=== PATIENT | male | born 1975 | race Caucasian/White ===

== ENCOUNTER 2020-01-09 07:12 | Emergency (ER) | payer OTHER, MEDICAID, SELFPAY ==
[2020-01-09 07:17] VITALS: BP 187/100; PULSE 75; RESP 16; TEMP 36.6; O2SAT 98; BMI 30.4
--- NOTE | 2020-01-09 07:17 | ED.DENTAL ---
HPI - Dental/Oral General Chief complaint: Dental/Oral Stated complaint: SHATTERED TOOTH THATS INFECTED Time Seen by Provider: 01/09/20 07:16 Source: patient Mode of arrival: Ambulatory Limitations: no limitations History of Present Illness HPI Narrative: The patient presents with 4 days of lower gum pain and swelling, and swelling to the left lower lip. He has dental caries, he has prior dental extraction due to abscesses. He has been unable to see a dentist due to insurance and the COVID-19 pandemic. In recent weeks he broke tooth #23. That site now is the source of inflammation and pain. He has no associated fever. He has no difficulty with swallowing. He has local edema to the lower lip but no other facial edema. He has no chest pain or dyspnea. He has no fever. Related Data Previous Rx's Medication Instructions Recorded undecylenic acid 25 % topical 1 applictn TOP BID #40 ml 11/08/18 solution clindamycin HCl [Cleocin HCl] 300 mg PO Q8H 10 Days #30 cap 01/09/20 ibuprofen 800 mg PO Q8H PRN #30 tab 01/09/20 tramadol 50 mg PO Q6-8H PRN #14 tab 01/09/20 Allergies Allergy/AdvReac Type Severity Reaction Status Date / Time penicillin V [PENICILLIN V] Allergy Unknown Unverified 09/29/17 11:48 Review of Systems Constitutional Constitutional: Denies chills, Denies fever(s) and Reports headache(s) ENT Ears, Nose, Mouth, and Throat: Reports as per HPI, Reports facial pain, Reports headache(s), Reports mouth pain, Denies neck pain and Denies sore throat Cardiovascular Cardiovascular: Denies chest pain and Denies dyspnea Respiratory Respiratory: Denies dyspnea Musculoskeletal Musculoskeletal: Denies neck pain Neurologic Neurologic: Reports headache(s) Patient History Medical History (Updated 01/09/20 @ 07:34 by Neno Erickson MD) Ankle pain (Chronic) Dental caries (Acute) Foot pain (Chronic) Kidney stones (Resolved) Skin problem (Inactive) Family History Father Cancer Grandfather Cancer Social History Smoking Status: Current every day smoker Smoking Status: Current every day smoker Exam Initial Vital Signs Initial Vital Signs: Vital Signs Temperature 98 F 01/09/20 07:17 Pulse Rate 75 01/09/20 07:17 Respiratory Rate 16 01/09/20 07:17 Blood Pressure 187/100 H 01/09/20 07:17 Pulse Oximetry 98 01/09/20 07:17 Const General: cooperative and well developed Nutritional Appearance: well nourished [facility] Head: other (Edema to the left lower lip and left chin.) Mouth: lip normal (Left lower lip edema.) and tongue normal Teeth and gingiva: caries (Tooth #23 has fractured at the gum line due to a gino. ) and other (Dental abscess associated with tooth #23.) Throat: posterior oropharynx normal Neck Neck: No lymphadenopathy and No tender Resp Auscultation: clear to auscultation bilaterally Cardio Rate: regular rate Rhythm: regular rhythm Heart Sounds: S1 normal and S2 normal Course Course Course Narrative: The patient was given an initial dose of clindamycin before departure from the ER. Ibuprofen 800 mg was given for pain. He is discharged on clindamycin, ibuprofen and tramadol. He is advised to make a dental follow-up. Orders Ordered: Clindamycin HCl (Cleocin) 300 mg PO NOW ONE Stop: 01/09/20 07:25 Ibuprofen (Advil) 800 mg PO NOW ONE Stop: 01/09/20 07:25 Vital Signs Vital signs: Vital Signs - 8 hr 01/09/20 07:17 Temperature 98 F Pulse Rate 75 Respiratory Rate 16 Blood Pressure 187/100 H Pulse Oximetry 98 Discharge Plan Departure Patient Disposition: Home Clinical Impression: Dental abscess Instructions: Tooth Abscess Activity Restrictions/Additional Instructions: Cleocin 300 mg 3 times daily as prescribed. Motrin every 6 hours as needed for pain. Tramadol every 6 hours as needed for added pain control. Apply ice packs to the swelling on your lower jaw frequently until the infection is improving. Make an appointment with a local dentist. Return to the ER if you develop significant facial swelling or fever. Prescriptions: New clindamycin HCl [Cleocin HCl] 300 mg capsule 300 mg PO Q8H 10 Days Qty: 30 RF: 0 ibuprofen 800 mg tablet 800 mg PO Q8H PRN (Reason: pain) Qty: 30 RF: 0 tramadol 50 mg tablet 50 mg PO Q6-8H PRN (Reason: pain) Qty: 14 RF: 0 No Action Antifungal 25 % solution 1 applictn TOP BID Qty: 40 RF: 2
[2020-01-09] MEDS: IBUPROFEN 400 MG TABLET 800 MG PO (07:44)
[2020-01-09] MEDS: CLINDAMYCIN 150 MG CAPSULE 300 MG PO (07:44)
== END 2020-01-09 07:52 | disposition home or self-care (01) ==
PROVIDERS: Emergency Provider Emergency Medicine
DX: K04.7 Periapical abscess without sinus (principal)
CPT/HCPCS: 99283

== ENCOUNTER 2021-11-29 01:31 | Emergency (ER) | payer OTHER, MEDICAID, SELFPAY ==
[2021-11-29 01:42] VITALS: BP 136/82; PULSE 90; RESP 16; TEMP 36.7; O2SAT 100; BMI 28.5
--- NOTE | 2021-11-29 01:51 | ED.SKABFB ---
HPI - Skin/Abscess/Foreign Bdy General Chief complaint: Skin/Abscess/Foreign Body Stated complaint: right arm injury/infection x2 days Time Seen by Provider: 11/29/21 01:42 Source: patient and other Mode of arrival: Wheelchair Limitations: no limitations History of Present Illness HPI narrative: 46-year-old male who is here for an infection of his right arm. He states that he has had a scab over this area for some time however he recently knocked the scab off. He also states that in scratching his arm he thinks that he infected it. He does have elbow pain but this is not new for him. No wrist pain. No fevers. He states that it has been draining since this morning. There is swelling in the area. Have been doing topical creams and also peroxide. Related Data Previous Rx's Medication Instructions Recorded undecylenic acid 25 % topical 1 applictn topical BID Bullous 11/08/18 solution (Antifungal) tinea pedis #40 mL ibuprofen 800 mg tablet 800 mg PO Q8H PRN pain #30 tabs 01/09/20 tramadol 50 mg tablet 50 mg PO Q6-8H PRN pain #14 tabs 01/09/20 doxycycline hyclate 100 mg tablet 100 mg PO BID 7 days #14 tabs 11/29/21 Allergies Allergy/AdvReac Type Severity Reaction Status Date / Time penicillin V [PENICILLIN V] Allergy Unknown Verified 11/29/21 01:53 Review of Systems Constitutional Constitutional: Denies fever(s) Musculoskeletal Musculoskeletal: Reports system reviewed and no additional complaints, except as documented Integumentary/Breasts Skin/Breast: Reports system reviewed and no additional complaints, except as documented Hematologic/Lymphatic On Anticoagulants: No Allergic/Immunologic Allergic/Immunologic: Reports system reviewed and no additional complaints, except as documented Patient History Medical History Ankle pain Foot pain Kidney stones Skin problem Family History Father Cancer Grandfather Cancer Social History Smoking Status: Current every day smoker Smoking Status: Current every day smoker alcohol intake frequency: a few times a month Substance Use Type: does not use Exam Initial Vital Signs Initial Vital Signs: Vital Signs Temperature 98.1 F 06/11/22 01:42 Pulse Rate 90 11/29/21 01:42 Respiratory Rate 16 11/29/21 01:42 Blood Pressure 136/82 11/29/21 01:42 Pulse Oximetry 100 11/29/21 01:42 Oxygen Delivery Method 11/29/21 01:42 Const General: cooperative and comfortable HENRI Head: normal to inspection and normocephalic Cardio Pulses: radial pulses present on the right Skin Other: Patient has redness and swelling to his right forearm. It is tender to the touch. This draining a small amount of purulent and serosanguineous material. Neuro Sensory Exam: no sensory deficits noted Extrem Other: No pain with movement of the right wrist. Has full range of motion of the right elbow. Tenderness to palpation over the redness and induration of the right forearm. Course Orders Ordered: Discontinued Medications Doxycycline Hyclate 100 mg/ (Sodium Chloride) 100 mls @ 100 mls/hr IV NOW ONE Stop: 11/29/21 01:52 Vital Signs Vital signs: Vital Signs - 8 hr 11/29/21 01:42 Temperature 98.1 F Pulse Rate 90 Respiratory Rate 16 Blood Pressure 136/82 Pulse Oximetry 100 Oxygen Delivery Method Room Air MDM - Skin/Abscess/Foreign Bdy MDM Narrative Medical decision making narrative: Bedside ultrasound does show cobblestoning but no definite abscess of the area of the right forearm. He has full range of motion of his right wrist and his right elbow. His vital signs are unremarkable. No fevers. Not tachycardic. Patient of stay is a cellulitis in this area but does not appear to have any abscess. Potentially the drainage is being on from this morning has drained this abscess. Patient does require antibiotics. Low suspicion for septic joint. Low suspicion for compartment syndrome. He is neurovascularly intact. Given 1st dose of antibiotics here in the ER and will sent home with a prescription for the remainder of the course. Expressed understanding and agreement. Discharge Plan Departure Patient Disposition: Home Clinical Impression: Cellulitis Instructions: DI for Cellulitis -- Adult Activity Restrictions/Additional Instructions: You can shower like normal. You can use soap and water over the area that is infected. Do need to put you on antibiotics and they were transmitted to [facility]'s pharmacy. Contact your primary doctor for follow-up. Return to the emergency department for any new or worsening symptoms. Prescriptions: New doxycycline hyclate 100 mg tablet 100 mg PO BID 7 Days Qty: 14 0RF No Action Antifungal 25 % solution 1 applictn TOP BID Qty: 40 2RF Rx Instructions: apply topically to affected area twice daily until resolved ibuprofen 800 mg tablet 800 mg PO Q8H PRN (Reason: pain) Qty: 30 0RF tramadol 50 mg tablet 50 mg PO Q6-8H PRN (Reason: pain) Qty: 14 0RF
[2021-11-29] MEDS: DOXYCYCLINE 100 MG in SODIUM CHLORIDE 0.9% 100 ML IV (02:02)
[2021-11-29] MEDS: ACETAMINOPHEN 325 MG TABLET 650 MG PO (02:20)
--- NOTE | 2021-11-29 02:22 | PC.NURSE ---
This RN entered room of pt to administer Tylenol. Pt and visitor both sleeping. Pt awoke with verbal stimulation and pt stated he will take the tylenol in a minute.
[2021-11-29 03:20] VITALS: BP 133/80; PULSE 89; RESP 18; TEMP 36.9; O2SAT 98
== END 2021-11-29 03:22 | disposition home or self-care (01) ==
PROVIDERS: Emergency Provider Emergency Medicine
DX: L03.113 Cellulitis of right upper limb (principal)
CPT/HCPCS: 36415; 96365; 99284

== ENCOUNTER 2023-06-12 06:43 | Emergency (ER) | payer OTHER, MEDICAID, SELFPAY ==
[2023-06-12 06:49] VITALS: BP 189/122; PULSE 85; O2SAT 99
[2023-06-12 06:53] VITALS: BP 189/122; PULSE 81; RESP 15; TEMP 36.9; O2SAT 98; BMI 28.0
[2023-06-12 07:00] VITALS: PULSE 81; O2SAT 99
--- NOTE | 2023-06-12 07:42 | ED_ITS ---
HPI - Dental/Oral General Chief complaint: Dental/Oral Stated complaint: face is swollen Time Seen by Provider: 06/12/23 07:42 Source: patient Mode of arrival: Ambulatory Limitations: no limitations History of Present Illness HPI Narrative: 47-year-old male smoker with no reported medical issues who presents with complaint of swelling and pain in the right lower jaw. Patient states woke up this way this morning in the last couple hours with the symptoms. States no fevers. Quite a bit of pain in the mandible, swelling on the inside and outside. Patient does not appreciate redness. He states he is had some nausea no vomiting. No reported difficulty with swallowing. No changes to voice. Patient states he is quite uncomfortable. Denies any other symptoms currently. Has had poor dentition for some time and had dental infections in the past. Patient states no daily medications. States he is allergic to penicillin does not know what happens but states he can take all other antibiotics including amoxicillin without issue. Does smoke daily, occasional alcohol denies any IV or recreational drugs. Accompanied by his significant other. Related Data Previous Rx's Medication Instructions Recorded undecylenic acid 25 % topical 1 applictn topical BID Bullous 11/08/18 solution (Antifungal) tinea pedis #40 mL ibuprofen 800 mg tablet 800 mg PO Q8H PRN pain #30 tabs 01/09/20 tramadol 50 mg tablet 50 mg PO Q6-8H PRN pain #14 tabs 01/09/20 amoxicillin 875 mg-potassium 1 tab PO Q12H #20 tabs 06/12/23 clavulanate 125 mg tablet Allergies Allergy/AdvReac Type Severity Reaction Status Date / Time penicillin V [PENICILLIN V] Allergy Unknown Verified 11/29/21 01:53 Review of Systems Review of Systems ROS Unobtainable: All systems reviewed & are unremarkable except as noted in HPI and below Patient History Medical History Skin problem Foot pain Ankle pain Kidney stones Family History Father Cancer Grandfather Cancer Social History Smoking Status: Current every day smoker Smoking Status: Current every day smoker alcohol intake frequency: a few times a month Substance Use Type: does not use Exam Narrative Exam Narrative: GEN: well nourished, well appearing male, alert and oriented x 3, patient appears to be in moderate distress. HEENT: Atraumatic, pupils are equal round reactive to light, extraocular movements are intact, nares are clear, TMs are clear with no fluid, there is no conjunctival pallor. Throat is clear without any exudates, erythema, tonsillar enlargement or uvular deviation, patient has somewhat poor dentition but no obvious cracked teeth. Patient has swelling of the right lower jaw/cheek. Patient has tenderness over the area. No obvious erythema appreciated. No palpable fluid collection or fluctuance. No difficulty swallowing secretions. HEART: Regular rate and rhythm without murmur, clicks, rubs. LUNGS:Lungs clear to auscultation, no wheezes, rales, crackles, chest moves symmetrically ABD:bowel sounds normal, soft, non-tender, no guarding, rebound, rigidity, no masses noted, no hepatosplenomegaly MSCL: Non-tender, no muscle atrophy, muscles strength 5/5 upper and lower extremities, full range of motion, normal gait NEURO:CN 2-12 intact, sensation normal Initial Vital Signs Initial Vital Signs: Vital Signs Pulse Rate 85 06/12/23 06:49 Blood Pressure 189/122 H 06/12/23 06:49 Pulse Oximetry 99 06/12/23 06:49 Course Orders Ordered: Discontinued Medications Amoxicillin/Clavulanate Potassium (Amoxicillin/Clav 875/125 Mg) 1 tab PO NOW ONE Stop: 06/12/23 07:55 Last Admin: 06/12/23 08:09 Dose: 1 tab Documented By: CONNER Ketorolac Tromethamine (Ketorolac 30 Mg/Ml Vial) 30 mg IM NOW ONE Stop: 06/12/23 07:55 Last Admin: 06/12/23 08:09 Dose: 30 mg Documented By: CONNER Ondansetron HCl (Ondansetron 4 Mg Odt Prepack) 1 bottle MISC DIRECTED ONE Stop: 06/12/23 07:55 Last Admin: 06/12/23 08:13 Dose: 1 bottle Documented By: CONNER Vital Signs Vital signs: Vital Signs - 8 hr 06/12/23 06:49 06/12/23 06:49 06/12/23 06:53 Temperature 98.4 F Pulse Rate 85 81 Respiratory Rate 15 Blood Pressure 189/122 H 189/122 H Pulse Oximetry 99 98 Oxygen Delivery Method Room Air 06/12/23 07:00 06/12/23 08:19 Temperature Pulse Rate 81 82 Respiratory Rate 18 Blood Pressure 154/89 H Pulse Oximetry 99 100 Oxygen Delivery Method Room Air MDM - Dental/Oral MDM Narrative Medical decision making narrative: 47-year-old male smoker with known prior dental issues who has swelling pain of the right lower jaw and cheek. Appears to likely have a dental infection that is extending into the skin, no erythema but suspect a developing cellulitis. No palpable fluid collection that can be drained at this time. Does not appear to be affecting airway. Patient states penicillin allergy but can tolerate a moxicillin so we will cover with Augmentin, patient was given a shot of Toradol here in the department and Zofran prepack as he is had some nausea but no vomiting. Discussed return precautions with patient and significant other in the room. Discharge Plan Departure Patient Disposition: Home Clinical Impression: Dental infection Activity Restrictions/Additional Instructions: Take antibiotics until completed. Prescription sent to [facility]. There is a prepack for Zofran, you can take 1 tablet every 6 hours as needed for nausea. You may take Tylenol up to a 1000 mg every 6 hours and/or ibuprofen up to 600 mg every 6 hours for pain. Please return for rapidly worsening symptoms, fevers, increasing swelling, redness or swelling of the tongue, airway, difficulty swallowing secretions/saliva, muffled voice or other new or concerning changes. Prescriptions: New amoxicillin-pot clavulanate 875-125 mg tablet 1 tab PO Q12H Qty: 20 0RF No Action Antifungal 25 % solution 1 applictn TOP BID Qty: 40 2RF Rx Instructions: apply topically to affected area twice daily until resolved ibuprofen 800 mg tablet 800 mg PO Q8H PRN (Reason: pain) Qty: 30 0RF tramadol 50 mg tablet 50 mg PO Q6-8H PRN (Reason: pain) Qty: 14 0RF Stand Alone Forms: Patient Portal/API
[2023-06-12] MEDS: AMOXICILLIN/CLAV 875/125 MG 1 TAB PO (08:09)
[2023-06-12] MEDS: KETOROLAC 30 MG/ML VIAL IM (08:09)
[2023-06-12] MEDS: ONDANSETRON 4 MG ODT PREPACK 1 BOTTLE MISC (08:13)
[2023-06-12 08:19] VITALS: BP 154/89; PULSE 82; RESP 18; O2SAT 100
== END 2023-06-12 08:20 | disposition home or self-care (01) ==
PROVIDERS: Emergency Provider Emergency Medicine
DX: K04.7 Periapical abscess without sinus (principal); L03.211 Cellulitis of face
CPT/HCPCS: 36415; 70491; 80053; 85025; 93005; 93010; 96372; 99283; 99284; J0696; J1170; J1885

== ENCOUNTER 2023-06-12 21:47 | Emergency (ER) | payer OTHER, MEDICAID, SELFPAY ==
[2023-06-12 21:54] VITALS: BP 182/110; PULSE 83; RESP 18; TEMP 37.4; O2SAT 98; BMI 29.2
[2023-06-12 22:18] VITALS: BP 183/113; PULSE 88; RESP 21
[2023-06-12 22:41] VITALS: BP 159/95; PULSE 86; RESP 19
--- NOTE | 2023-06-12 22:56 | ED.GENADULT ---
HPI - General Adult General Chief complaint: Dental/Oral Stated complaint: face/dental abscess worsened Time Seen by Provider: 06/12/23 22:50 Source: patient Mode of arrival: Ambulatory History of Present Illness HPI narrative: 47-year-old gentleman with no significant medical issues was seen this morning after awakening with pain and swelling in the right side of his face/angle of his jaw. He was seen in this ER and prescribed amoxicillin, given Zofran and instructed to use ibuprofen and Tylenol as needed. Over the course of the day his pain has increased and the swelling has significantly increased to the point he now has impressive swelling right angle of his jaw extending submandibular and down the anterior cervical portions neck. He is having trismus, states that he feels it is more difficult to swallow, the pain is getting significantly worse. He has not noticed any drainage into his mouth and there is no obvious pointing source of abscess that might be easily accessed. He describes no fevers. He states he began having some upper chest pain just under the sternal notch after awakening from a nap this afternoon. This is not positional or activity related. Related Data Previous Rx's Medication Instructions Recorded undecylenic acid 25 % topical 1 applictn topical BID Bull[place] 11/08/18 solution (Antifungal) tinea pedis #40 mL ibuprofen 800 mg tablet 800 mg PO Q8H PRN pain #30 tabs 01/09/20 tramadol 50 mg tablet 50 mg PO Q6-8H PRN pain #14 tabs 01/09/20 amoxicillin 875 mg-potassium 1 tab PO Q12H #20 tabs 06/12/23 clavulanate 125 mg tablet clindamycin HCl 300 mg capsule 300 mg PO TID 7 days #21 caps 06/13/23 oxycodone-acetaminophen 5 mg-325 1 tab PO Q6H PRN pain #10 tabs 06/13/23 mg tablet Allergies Allergy/AdvReac Type Severity Reaction Status Date / Time penicillin V [PENICILLIN V] Allergy Unknown unknown Verified 06/13/23 00:05 Review of Systems Review of Systems Narrative: Pertinent positive and negative findings as per HPI Patient History Medical History Skin problem Foot pain Ankle pain Kidney stones Family History Father Cancer Grandfather Cancer Social History Smoking Status: Current every day smoker Smoking Status: Current every day smoker alcohol intake frequency: a few times a month Substance Use Type: does not use Exam Initial Vital Signs Initial Vital Signs: Vital Signs Temperature 99.3 F 06/12/23 21:54 Pulse Rate 83 06/12/23 21:54 Respiratory Rate 18 06/12/23 21:54 Blood Pressure 182/110 H 06/12/23 21:54 Pulse Oximetry 98 06/12/23 21:54 Oxygen Delivery Method Room Air 06/12/23 21:54 General: Significant swelling over the right angle of the jaw, submandibular and anterior cervical without obvious abscess. Obviously in pain but able to Able to give a complete and coherent history. Well-nourished well-developed HEENT: Moist mucous membranes, normal sclera with reactive pupils, no palpable abscesses under the tongue or noted along buccal mucosa. He does have multiple missing teeth. He is unable to open his jaw more than approximately 3 cm Neck: Fullness the right anterior cervical area without cervical adenopathy. No warmth or redness. Respiratory: Lungs are clear to auscultation, no wheezing no rales no rhonchi. Full and symmetrical air movement Cardiac: Regular rate and rhythm no murmurs no bruits Skin: Warm and dry, no rashes Neurologic: Grossly neurologically intact with no obvious asymmetries or abnormalities Extremities: No trauma, well perfused Psych: Cooperative, appropriate insight and affect Course Orders Ordered: ED Orders 06/12/23 22:05 EKG-12 Lead Stat 06/12/23 23:06 Complete Blood Count AUTO DIFF Stat Comprehensive Metabolic Panel Stat 06/12/23 23:08 CT soft tissue neck w con Stat Hydromorphone HCl (Hydromorphone 0.5 Mg Inj) 0.5 mg IV Q15MIN PRN PRN Reason: Pain, Last Admin: 06/13/23 00:10 Dose: 0.5 mg Documented By: Admin: 06/12/23 23:15 Dose: 0.5 mg Documented By: BB Discontinued Medications Sodium Chloride (Normal Saline 0.9%) 1,000 mls @ 1,000 mls/hr IV BOLUS ONE Stop: 06/12/23 23:55 Last Infusion: 06/13/23 00:45 Dose: Infused Documented By: Admin: 06/12/23 23:15 Dose: 1,000 mls/hr Documented By: SERGE Ceftriaxone Sodium 2,000 mg/ (Sodium Chloride) 100 mls @ 200 mls/hr IV NOW ONE Stop: 06/13/23 00:04 Last Infusion: 06/13/23 00:44 Dose: Infused Documented By: Admin: 06/13/23 00:21 Dose: 200 mls/hr Documented By: SERGE Ketorolac Tromethamine (Ketorolac 30 Mg/Ml Vial) 15 mg IV NOW ONE Stop: 06/12/23 22:57 Last Admin: 06/12/23 23:14 Dose: 15 mg Documented By: SERGE Vital Signs Vital signs: Vital Signs - 8 hr 06/12/23 21:54 06/12/23 22:18 06/12/23 22:41 Temperature 99.3 F Pulse Rate 83 88 86 Respiratory Rate 18 21 19 Blood Pressure 182/110 H 183/113 H 159/95 H Pulse Oximetry 98 Oxygen Delivery Method Room Air 06/12/23 23:21 06/12/23 23:43 06/13/23 00:22 Temperature 97.8 F Pulse Rate 85 82 80 Respiratory Rate 21 19 17 Blood Pressure 157/91 H 157/91 H 132/81 Pulse Oximetry 99 96 95 Oxygen Delivery Method Room Air Room Air 06/13/23 00:23 06/13/23 00:30 06/13/23 00:30 Temperature Pulse Rate 80 79 Respiratory Rate 19 21 Blood Pressure 136/82 Pulse Oximetry 95 94 Oxygen Delivery Method 06/13/23 01:00 06/13/23 01:00 Temperature Pulse Rate 78 Respiratory Rate 21 Blood Pressure 141/84 H Pulse Oximetry 94 Oxygen Delivery Method Medical Decision Making Lab Data 06/12/23 23:06 06/12/23 23:06 Labs: Lab Results 06/12/23 Range/Units 23:06 WBC 13.0 H (4.5-11.0) X10^3/uL RBC 4.55 (4.5-5.9) X10^6/uL Hgb 13.5 (13.5-17.5) g/dL Hct 39.5 L (41-53) % MCV 86.8 (80-100) fL MCH 29.6 (26-34) PG MCHC 34.0 (30-36) % RDW 13.2 (11.6-14.8) % Plt Count 211 (150-400) X10^3/uL Neut % (Auto) 75.1 H (50-75) % Lymph % (Auto) 15.4 L (25-40) % Lucas % (Auto) 6.7 (3-14) % Eos % (Auto) 2.6 (2-4) % Baso % (Auto) 0.2 (0-2) % Neut # (Auto) 9800 H (3525-6783) /uL Lymph # (Auto) 2000 (4114-2182) /uL Lucas # (Auto) 900 (0-900) /uL Eos # (Auto) 300 (0-450) /uL Baso # (Auto) 0 (0-100) /uL Sodium 136 L (137-145) mmol/L Potassium 3.6 (3.4-5.1) mmol/L Chloride 101 (98-107) mmol/L Carbon Dioxide 26 (22-32) mmol/L BUN 12 (9-20) mg/dL Creatinine 0.59 L (0.66-1.25) mg/dL Estimated GFR > 60 (>60) mL/min BUN/Creatinine Ratio 20.3 (6-22) Glucose 104 H (70-100) mg/dL Calcium 9.0 (8.4-10.2) mg/dL Total Bilirubin 0.6 (0.2-1.3) mg/dL AST 19 (17-59) IU/L ALT 17 (<50) IU/L Alkaline Phosphatase 54 (38-126) U/L Total Protein 7.5 (6.3-8.2) g/dL Albumin 4.1 (3.5-5.0) g/dL Globulin 3.4 (1.7-4.1) g/dL Albumin/Globulin Ratio 1.2 (1.0-2.8) Imaging Data CT soft tissue neck: Radiologist's Impression: FINDINGS: Image quality: Diagnostic. Lymph nodes: No pathologically enlarged lymph nodes seen throughout the neck. Vessels: Visualized vasculature appears patent. Neck spaces: The oropharynx, nasopharynx, and pharynx demonstrate no mucosal lesions. The vocal cords, false vocal cords, pyriform sinuses, epiglottis, vallecula, and tongue base all appear unremarkable. Extramucosal spaces appear unremarkable. Glands: The parotid and submandibular glands appear normal. Thyroid gland unremarkable. Miscellaneous: Visualized brain and orbits appear normal. Lung apices appear clear. There is moderate superficial subcutaneous soft tissue edema noted in the region of the right mandible extending inferiorly towards the lower neck. There is overlying skin thickening. Submandibular and cervical chain lymph nodes in the right neck appear unremarkable. No organized fluid collection/abscess identified. Bones: No suspicious bony lesions. Visualized sinuses and mastoids appear unremarkable. Multiple dental caries are noted in the right mandibular teeth, most pronounced at the right mandibular 1st premolar tooth. IMPRESSION: Extensive subcutaneous soft tissue edema of the right mandibular region extending towards the right lower neck with overlying skin thickening likely related to cellulitis. No underlying organized fluid collection or abscess seen. No suspicious adenopathy. Unremarkable appearance of the right submandibular gland. Multiple dental caries of the right mandibular teeth most pronounced over the 1st premolar. Dictated by: Jessee Mcleod M.D. on 06/13/2023 at 0:01 MDM Narrative Medical decision making narrative: CC: Dental abscess progressing over the last 12 hours Complicating co-morbidities: Noted at 6:00 a.m. this morning, has taken a dose of amoxicillin and symptoms or worsening Data collected from: patient, partner Medical records reviewed: Note from this morning is reviewed Differential considered: Dental Abscess, parapharyngeal abscess, Edi's angina Exam documented above, pertinent findings include: Swelling of the angle of the jaw under the jaw and down the anterior neck. Lab Test results independently reviewed as above. Pertinent findings: Chemistries are unremarkable CBC is notable for a white count of 13 with 75% neutrophils. No significant anemia. Imaging studies independently reviewed: CT scan soft tissue of the neck with contrast is reviewed. Detailed findings per Radiology above Treatments: A L of fluid, 2 g of ceftriaxone, Toradol and half a mg of IV Dilaudid or given. Re-evaluations: Pain is significantly better controlled. Discussion: 47-year-old gentleman with significant right mandibular submandibular and anterior cervical swelling consistent with cellulitis but no evidence of developing abscess based on CT scan. Mildly elevated white blood cell count but no evidence of sepsis. He is feeling remarkably better. He requests a switch in antibiotics. He feels that the amoxicillin was not effective. We will go ahead and change to clindamycin. Explained that the 1st dose will need to be later this morning. He does have ibuprofen available it sounds like he was not interested in picking up the tramadol and in general, tends to avoid all pain medications. He states most a single Alleve is effective for him. We talked about additional options and agreed to small prescription for Percocet to help with pain control. At this point he does not have any evidence of retropharyngeal abscess, airway compromise Edi's angina, any reason for additional imaging, workup or hospitalization at this time. He understands that if symptoms do worsen he needs to come back to the emergency department and may need a course of hospitalization for IV antibiotics. He will follow up with a dentist when possible. He is safe for discharge Discharge Plan Departure Patient Disposition: Home Clinical Impression: Dental infection, Cellulitis of face Instructions: Tooth Abscess Activity Restrictions/Additional Instructions: Thank you for coming back this evening. I am sorry that this infection seems to be continuing to expand. Workup done in the emergency department today shows a mildly elevated white blood cell count and significant infection in the tissue that is obviously swollen and painful however, there is no evidence of deeper abscess or infection that is tracking toward your windpipe or down into your chest. It likely is going to take another 24 hours before he began to notice significant decrease in the swelling. At your request we can certainly change antibiotics from the amoxicillin you picked up earlier today to clindamycin. I would recommend that you complete the entire 7 days of clindamycin. You are welcome to use the ibuprofen or tramadol from earlier today. You stated that a leave seems to be more effective for you it is okay to use that but I would not mix it with ibuprofen (the to a very similar medications). I have also given you a small prescription for Percocet to use for severe pain if needed. This has Tylenol plus oxycodone in. Oxycodone is a narcotic and can cause constipation. It can be addictive and you should not combine it with alcohol nor drive or operate heavy machinery when you are using a narcotic The [facility] [place] If you find that you are getting worse or develop any new symptoms, please feel free to return to the emergency department for further evaluation. Prescriptions: New clindamycin HCl 300 mg capsule 300 mg PO TID 7 Days Qty: 21 0RF oxycodone-acetaminophen 5-325 mg tablet 1 tab PO Q6H PRN (Reason: pain) Qty: 10 0RF No Action Antifungal 25 % solution 1 applictn TOP BID Qty: 40 2RF Rx Instructions: apply topically to affected area twice daily until resolved ibuprofen 800 mg tablet 800 mg PO Q8H PRN (Reason: pain) Qty: 30 0RF tramadol 50 mg tablet 50 mg PO Q6-8H PRN (Reason: pain) Qty: 14 0RF amoxicillin-pot clavulanate 875-125 mg tablet 1 tab PO Q12H Qty: 20 0RF Stand Alone Forms: Patient Portal/API
--- NOTE | 2023-06-12 23:08 | DI.CT.S_ITS ---
PROCEDURE: CT SOFT TISSUE NECK W CON INDICATIONS: Dental abscess extending submandibular, and down ant neck TECHNIQUE: After the administration of intravenous contrast, 3.0 mm axial sections acquired from the sella to the aortic arch. Additional oblique axial 3.0 mm sections acquired through the pharynx. 3 mm thick coronal and sagittal reformats were generated. For radiation dose reduction, the following was used: automated exposure control. COMPARISON: None. FINDINGS: Image quality: Diagnostic. Lymph nodes: No pathologically enlarged lymph nodes seen throughout the neck. Vessels: Visualized vasculature appears patent. Neck spaces: The oropharynx, nasopharynx, and pharynx demonstrate no mucosal lesions. The vocal cords, false vocal cords, pyriform sinuses, epiglottis, vallecula, and tongue base all appear unremarkable. Extramucosal spaces appear unremarkable. Glands: The parotid and submandibular glands appear normal. Thyroid gland unremarkable. Miscellaneous: Visualized brain and orbits appear normal. Lung apices appear clear. There is moderate superficial subcutaneous soft tissue edema noted in the region of the right mandible extending inferiorly towards the lower neck. There is overlying skin thickening. Submandibular and cervical chain lymph nodes in the right neck appear unremarkable. No organized fluid collection/abscess identified. Bones: No suspicious bony lesions. Visualized sinuses and mastoids appear unremarkable. Multiple dental caries are noted in the right mandibular teeth, most pronounced at the right mandibular 1st premolar tooth. IMPRESSION: Extensive subcutaneous soft tissue edema of the right mandibular region extending towards the right lower neck with overlying skin thickening likely related to cellulitis. No underlying organized fluid collection or abscess seen. No suspicious adenopathy. Unremarkable appearance of the right submandibular gland. Multiple dental caries of the right mandibular teeth most pronounced over the 1st premolar. Dictated by: Jessee Mcleod M.D. on 06/13/2023 at 0:01 Approved by: Jessee Mcleod M.D. on 06/13/2023 at 0:09
[2023-06-12] MEDS: KETOROLAC 30 MG/ML VIAL 15 MG IV (23:14)
[2023-06-12] MEDS: SODIUM CHLORIDE 0.9% 1,000 ML 1000 ML IV (23:15)
[2023-06-12] MEDS: HYDROMORPHONE 0.5 MG INJ IV (23:15)
[2023-06-12 23:17] LABS: Add Manual Diff / Slide Review NO; Basophils Absolute Auto 0 /uL (0-100); Basophils Percent Auto 0.2 % (0-2); Eosinophils Absolute Auto 300 /uL (0-450); Eosinophils Percent Auto 2.6 % (2-4); Hematocrit 39.5 % (41-53); Hemoglobin 13.5 g/dL (13.5-17.5); Lymphocytes Absolute Auto 2000 /uL (1100-4500); Lymphocytes Percent Auto 15.4 % (25-40); Mean Corpuscular Hemoglobin 29.6 PG (26-34); Mean Corpuscular Volume 86.8 fL (80-100); Monocytes Absolute Auto 900 /uL (0-900); Monocytes Percent Auto 6.7 % (3-14); Neutrophils Absolute Auto 9800 /uL (1500-7000); Neutrophils Percent Auto 75.1 % (50-75); Platelet Count 211 X10^3/uL (150-400); Red Blood Cell Count 4.55 X10^6/uL (4.5-5.9); Red Cell Distribution Width 13.2 % (11.6-14.8)
[2023-06-12 23:21] VITALS: BP 157/91; PULSE 85; RESP 21; TEMP 36.6; O2SAT 99
[2023-06-12 23:27] LABS: Alanine Aminotransferase 17 IU/L (<50); Albumin 4.1 g/dL (3.5-5.0); Albumin Globulin Ratio 1.2 (1.0-2.8); Alkaline Phosphatase 54 U/L (38-126); Aspartate Aminotransferase 19 IU/L (17-59); BUN Creatinine Ratio 20.3 (6-22); Bilirubin Total 0.6 mg/dL (0.2-1.3); Blood Urea Nitrogen 12 mg/dL (9-20); Carbon Dioxide 26 mmol/L (22-32); Chloride 101 mmol/L (98-107); Estimated Glomerular Filt Rate > 60 mL/min (>60); Globulin 3.4 g/dL (1.7-4.1); Glucose 104 mg/dL (70-100); HEMOLYSIS < 15 (0-50); Potassium 3.6 mmol/L (3.4-5.1); Sodium 136 mmol/L (137-145); Total Protein 7.5 g/dL (6.3-8.2)
[2023-06-12 23:43] VITALS: BP 157/91; PULSE 82; RESP 19; O2SAT 96
[2023-06-13] MEDS: HYDROMORPHONE 0.5 MG INJ IV (00:10)
[2023-06-13] MEDS: cefTRIAXone 2,000 MG in SODIUM CHLORIDE 0.9% 100 ML 200 MG IV (00:21)
[2023-06-13 00:22] VITALS: BP 132/81; PULSE 80; RESP 17; O2SAT 95
[2023-06-13 00:23] VITALS: PULSE 80; RESP 19; O2SAT 95
[2023-06-13 00:30] VITALS: BP 136/82; PULSE 79; RESP 21; O2SAT 94
[2023-06-13 01:00] VITALS: BP 141/84; PULSE 78; RESP 21; O2SAT 94
== END 2023-06-13 01:33 | disposition home or self-care (01) ==
PROVIDERS: Emergency Provider Emergency Medicine
DX: L03.211 Cellulitis of face (principal); K04.7 Periapical abscess without sinus
CPT/HCPCS: 36415; 70491; 80053; 85025; 93005; 93010; 99284; J0696; J1170; J1885

== ENCOUNTER 2024-06-25 23:27 | Observation (INO) | payer OTHER, SELFPAY ==
[2024-06-25 23:32] VITALS: BP 151/97; PULSE 80; RESP 16; TEMP 37.1; O2SAT 97; BMI 27.3
[2024-06-26] VITALS (11 sets, daily range): BP systolic 124–157; BP diastolic 78–102; PULSE 71–95; RESP 17–18; TEMP 36.2–36.9; O2SAT 97–99; BMI 27.3
--- NOTE | 2024-06-26 02:32 | PC.NURSE ---
pt has possible abscess to the left hand from a scab that he picked at, area is approximately half-dollar size is scabbed over red and hand is swollen
--- NOTE | 2024-06-26 03:01 | ED_ITS ---
HPI - Skin/Abscess/Foreign Bdy General Chief complaint: Skin/Abscess/Foreign Body Stated complaint: left hand infected and swollen Time Seen by Provider: 06/26/24 00:10 Source: patient Mode of arrival: Ambulatory Limitations: no limitations History of Present Illness HPI narrative: 48-year-old male complains of 2-3 days duration increasing left hand pain and swelling, believes he had a scratch to the middle top of his left hand, does not recall any puncture, did not have a fight, no bite wounds recalled, no antibiotics currently taken. He has swelling of his hand, unable to clench into fist, can just extent is fingers to open hand palm position. No pain or swelling to his left wrist, forearm, elbow. He has allergy reported to penicillin but medication list indicates that he has had Augmentin in the past Related Data Home Medications Medication Instructions Recorded Confirmed No Known Home Medications 06/26/24 06/26/24 Allergies Allergy/AdvReac Type Severity Reaction Status Date / Time penicillin V [PENICILLIN V] Allergy Unknown unknown Verified 06/13/23 00:05 Patient History Medical History Skin problem Foot pain Ankle pain Kidney stones Family History Father Cancer Grandfather Cancer Social History household members: significant other Smoking Status: Current every day smoker Smoking Status: Current every day smoker alcohol intake frequency: a few times a month Exam Narrative Exam Narrative: GENERAL: Well-developed patient, in mild distress. HEAD: Atraumatic. Normocephalic. EYES: Pupils equal round and reactive. Extraocular motions intact. No scleral icterus. No injection or drainage. ENT: Nose without bleeding, purulent drainage. Throat without erythema, tonsillar hypertrophy or exudate. Airway patent. NECK: Trachea midline. Non tender CARDIOVASCULAR: Regular rate and rhythm without murmurs, gallops, or rubs. RESPIRATORY: Clear to auscultation. Breath sounds equal bilaterally. No wheezes, rales, or rhonchi. GASTROINTESTINAL: Abdomen soft, non-tender, nondistended. EXTREMITIES: Left hand dorsal swelling with exudate, no expressible fluid, no fluctuance or crepitance, he can not flex his hand into a fist, opens hand just short of full extension of all fingers. Dorsal hand swelling extends to wrist crease, no forearm swelling or lymphangitic streaking. BACK: Nontender without deformity or crepitance. No flank tenderness. NEURO: AOx3. Motor functions grossly nonfocal SKIN: No rash or erythema of visible areas Initial Vital Signs Initial Vital Signs: Vital Signs Temperature 98.7 F 06/25/24 23:32 Pulse Rate 80 06/25/24 23:32 Respiratory Rate 16 06/25/24 23:32 Blood Pressure 151/97 H 06/25/24 23:32 Pulse Oximetry 97 06/25/24 23:32 Oxygen Delivery Method Room Air 06/25/24 23:32 Course Orders Ordered: Acetaminophen (Acetaminophen 325 Mg Tablet) 650 mg PO Q6H PRN PRN Reason: Fever/Mild Pain (1-3) Ceftriaxone Sodium 1,000 mg/ (Sodium Chloride) 100 mls @ 200 mls/hr IV Q24H [facility] Vancomycin HCl (Vancomycin) 1,250 mg in 250 mls @ 250 mls/hr IV Q8H [facility] Last Admin: 06/26/24 12:05 Dose: 250 mls/hr Documented By: REGINE Naloxone HCl (Naloxone 0.4 Mg/Ml Vial) 0.2 mg IV Q2MIN PRN PRN Reason: Opiate Reversal Ondansetron HCl (Ondansetron 4 Mg/2 Ml Inj) 4 mg IV Q8HR PRN PRN Reason: Nausea And Vomiting Vancomycin HCl (Vancomycin Per Pharmacy) 1 request MISC NOW PRN PRN Reason: cellulitis Vancomycin HCl (Vancomycin Trough) 1 request MIS 1130 [facility] Stop: 06/27/24 11:31 Discontinued Medications Ceftriaxone Sodium 1,000 mg/ (Sodium Chloride) 100 mls @ 200 mls/hr IV NOW ONE Stop: 06/26/24 03:08 Last Infusion: 06/26/24 03:50 Dose: Infused Documented By: Infusion: 06/26/24 03:49 Dose: 0 mls/hr Documented By: Admin: 06/26/24 03:37 Dose: 200 mls/hr Documented By: ELENITA Vancomycin HCl 2,000 mg/ (Sodium Chloride) 500 mls @ 250 mls/hr IV NOW ONE Stop: 06/26/24 03:08 Last Admin: 06/26/24 03:32 Dose: Not Given Documented By: ELENITA Vancomycin HCl/Dextrose (Vancomycin) 2,000 mg in 400 mls @ 200 mls/hr IV NOW ONE Stop: 06/26/24 05:24 Last Infusion: 06/26/24 05:34 Dose: 200 mls/hr Documented By: Admin: 06/26/24 04:10 Dose: 200 mls/hr Documented By: ELENITA Sodium Chloride (Normal Saline 0.9%) 1,000 mls @ 1,000 mls/hr IV BOLUS ONE Stop: 06/26/24 04:36 Last Infusion: 06/26/24 05:15 Dose: Infused Documented By: Admin: 06/26/24 04:10 Dose: 1,000 mls/hr Documented By: ELENITA Lidocaine HCl (Lidocaine 1% 20 Ml) 3 ml SUBCUT NOW ONE Stop: 06/26/24 12:39 Last Admin: 06/26/24 12:45 Dose: 3 ml Documented By: REGINE Oxycodone HCl (Oxycodone Ir 10 Mg Tablet) 30 mg PO Q4HR PRN PRN Reason: Pain, Severe (7-10) Vancomycin HCl (Vancomycin Trough) 1 request MISC NOW ONE Stop: 06/26/24 03:31 Vital Signs Vital signs: Vital Signs - 8 hr 06/25/24 23:32 06/26/24 00:02 06/26/24 00:03 Temperature 98.7 F Pulse Rate 80 85 Respiratory Rate 16 Blood Pressure 151/97 H 124/89 Pulse Oximetry 97 99 Oxygen Delivery Method Room Air 06/26/24 00:30 06/26/24 01:00 06/26/24 01:30 Temperature Pulse Rate 82 82 79 Respiratory Rate Blood Pressure Pulse Oximetry 97 98 97 Oxygen Delivery Method 06/26/24 02:00 Temperature Pulse Rate 77 Respiratory Rate Blood Pressure Pulse Oximetry 99 Oxygen Delivery Method MDM - Skin/Abscess/Foreign Bdy Lab Data Attestation: I reviewed the patient's lab results. Lab results narrative: White blood cell count 9800, hemoglobin 13.1, platelets [id number]. BMP unremarkable. Liver functions unremarkable. ESR 19. C-reactive protein 4.9 slight elevation only. Lactate 0.7 not elevated. 06/26/24 03:20 06/26/24 03:20 Labs: Lab Results 06/26/24 Range/Units 03:20 WBC 9.8 (4.5-11.0) X10^3/uL RBC 4.40 L (4.5-5.9) X10^6/uL Hgb 13.1 L (13.5-17.5) g/dL Hct 39.0 L (41-53) % MCV 88.7 (80-100) fL MCH 29.7 (26-34) PG MCHC 33.5 (30-36) % RDW 13.2 (11.6-14.8) % Plt Count 226 (150-400) X10^3/uL Neut % (Auto) 62.1 (50-75) % Lymph % (Auto) 24.8 L (25-40) % [place] % (Auto) 9.2 (3-14) % Eos % (Auto) 3.2 (2-4) % Baso % (Auto) 0.7 (0-2) % Neut # (Auto) 6100 (9412-8117) /uL Lymph # (Auto) 2400 (6744-6793) /uL [place] # (Auto) 900 (0-900) /uL Eos # (Auto) 300 (0-450) /uL Baso # (Auto) 100 (0-100) /uL ESR 19 H (0-15) MM/HR Sodium 133 L (137-145) mmol/L Potassium 3.7 (3.4-5.1) mmol/L Chloride 99 (98-107) mmol/L Carbon Dioxide 31 (22-32) mmol/L BUN 9 (9-20) mg/dL Creatinine 0.67 (0.66-1.25) mg/dL Estimated GFR > 60 (>60) mL/min BUN/Creatinine Ratio 13.4 (6-22) Glucose 107 H (70-100) mg/dL Lactate 0.7 (0.7-2.1) mmol/L Calcium 9.2 (8.4-10.2) mg/dL Total Bilirubin 0.6 (0.2-1.3) mg/dL AST 20 (17-59) IU/L ALT 18 (<50) IU/L Alkaline Phosphatase 62 (38-126) U/L C-Reactive Protein 4.9 H (<1.0) mg/dL Total Protein 7.3 (6.3-8.2) g/dL Albumin 3.9 (3.5-5.0) g/dL Globulin 3.4 (1.7-4.1) g/dL Albumin/Globulin Ratio 1.1 (1.0-2.8) MDM Narrative Medical decision making narrative: 48-year-old male with left dorsal hand infection, scratch wound recalled couple of days ago, increasing in swelling, unable to close his fist. Denies fight bite like injury mechanism. Reports history of penicillin allergy however apparently on his medication list he has tolerated Augmentin. Blood cultures requested. IV vancomycin, IV ceftriaxone. White blood cell count not elevated, ESR and CRP mildly elevated. Lactate normal. X-ray left hand. Impressions: ?Soft tissue swelling overlying the dorsal aspect of the hand without fracture or foreign body. ? See teleradiology report CT left-hand with IV contrast. Impressions: ?Extensive induration within the subcutaneous fat of the dorsal aspect of the distal forearm, wrist, and hand without discrete fluid collection to suggest abscess. This is most characteristic of cellulitis. See teleradiology report No drainable fluid for urgent surgical intervention. We will contact hospitalist regarding further antibiotics and admission. Patient agreeable. 0510, case discussed with hospitalist Dr. Chavez who accepts patient for admission Critical Care Time Critical Care Time Total Critical Care Time: 35 Attestation: The high probability of a clinically significant, sudden or life threatening deterioration of the [orthopedic, dermatologic] system(s) required my full and direct attention, intervention and personal management. The aggregate critical care time was [35] minutes. This time is in addition to time spent performing reported procedures but includes the following: [x] Data Review and interpretation [x] Patient assessment and monitoring of vital signs [x] Documentation [x] Medication orders and management Discharge Plan Departure Patient Disposition: Admitted As Inpatient Clinical Impression: Cellulitis of left hand Admit Date/Time: 06/26/24 05:09 Admit Provider: Ayan Chavez
--- NOTE | 2024-06-26 03:03 | PC.NURSE ---
Dr Brunner in to evaluate pt
--- NOTE | 2024-06-26 03:05 | DI.RAD.S_ITS ---
PROCEDURE: XR HAND LT MIN 3V INDICATIONS: L hand swelling, infection, eval for FB/fx/osteo TECHNIQUE: 3 views of the hand(s) acquired. COMPARISON: None. FINDINGS: Bones: No fractures or dislocations. Carpal bones are normally aligned. No suspicious bony lesions. Soft tissues: No suspicious soft tissue calcifications. Soft tissue swelling about the hand, predominantly on the dorsum. IMPRESSION: Soft tissue swelling of the hand, without radiopaque foreign body. No bony erosion to suggest osteomyelitis at this time. Agree with preliminary report. Dictated by: Mitch Bustos M.D. on 06/26/2024 at 8:08 Approved by: Mitch Bustos M.D. on 06/26/2024 at 8:09
[2024-06-26 03:29] LABS: Add Manual Diff / Slide Review NO; Basophils Absolute Auto 100 /uL (0-100); Basophils Percent Auto 0.7 % (0-2); Eosinophils Absolute Auto 300 /uL (0-450); Eosinophils Percent Auto 3.2 % (2-4); Hemoglobin 13.1 g/dL (13.5-17.5); Lymphocytes Absolute Auto 2400 /uL (1100-4500); Lymphocytes Percent Auto 24.8 % (25-40); Mean Corpuscular HGB Conc 33.5 % (30-36); Mean Corpuscular Hemoglobin 29.7 PG (26-34); Mean Corpuscular Volume 88.7 fL (80-100); Monocytes Absolute Auto 900 /uL (0-900); Monocytes Percent Auto 9.2 % (3-14); Neutrophils Absolute Auto 6100 /uL (1500-7000); Neutrophils Percent Auto 62.1 % (50-75); Platelet Count 226 X10^3/uL (150-400); Red Cell Distribution Width 13.2 % (11.6-14.8); White Blood Cell Count 9.8 X10^3/uL (4.5-11.0)
[2024-06-26] MEDS: cefTRIAXone 1,000 MG in SODIUM CHLORIDE 0.9% 100 ML 200 MG IV ×2 (03:37→22:26)
--- NOTE | 2024-06-26 03:37 | DI.CT.S_ITS ---
PROCEDURE: CT UE LT W CON INDICATIONS: hand swelling/infection, neg XR, eval for fluid collection TECHNIQUE: After the administration of intravenous contrast, 3 mm axial sections acquired of the left upper extremity , with coronal and sagittal reformats. COMPARISON: [facility], CR, XR HAND LT MIN 3V, 06/26/2024, 3:03. FINDINGS: Image quality: Excellent. Bones: No visualized fracture or dislocation. No suspicious osseous lesions or periosteal reaction. No erosions. Soft tissues: There is no enhancing fluid collection. Inflammatory changes within the subcutaneous fat of the dorsal forearm, wrist and hand are present. Muscular structures are within normal limits. Vascular structures are patent. IMPRESSION: Inflammatory change within the subcutaneous fat without enhancing fluid collection to suggest abscess. Overall appearance is suggestive cellulitis. The above findings are concordant with preliminary report. Dictated by: Rachel Gary M.D. on 06/26/2024 at 10:11 Approved by: Rachel Gary M.D. on 06/26/2024 at 10:13
[2024-06-26 03:48] LABS: Lactate (Lactic Acid) 0.7 mmol/L (0.7-2.1)
[2024-06-26 03:49] LABS: Alanine Aminotransferase 18 IU/L (<50); Albumin 3.9 g/dL (3.5-5.0); Albumin Globulin Ratio 1.1 (1.0-2.8); Alkaline Phosphatase 62 U/L (38-126); Aspartate Aminotransferase 20 IU/L (17-59); BUN Creatinine Ratio 13.4 (6-22); Bilirubin Total 0.6 mg/dL (0.2-1.3); Blood Urea Nitrogen 9 mg/dL (9-20); Calcium 9.2 mg/dL (8.4-10.2); Carbon Dioxide 31 mmol/L (22-32); Chloride 99 mmol/L (98-107); Estimated Glomerular Filt Rate > 60 mL/min (>60); Globulin 3.4 g/dL (1.7-4.1); Glucose 107 mg/dL (70-100); HEMOLYSIS < 15 (0-50); Potassium 3.7 mmol/L (3.4-5.1); Sodium 133 mmol/L (137-145); Total Protein 7.3 g/dL (6.3-8.2)
[2024-06-26 03:51] LABS: C-Reactive Protein Quant 4.9 mg/dL (<1.0)
[2024-06-26] MEDS: VANCOMYCIN 2,000 MG/400 ML PIGGYBACK 200 MG IV (04:10)
[2024-06-26] MEDS: SODIUM CHLORIDE 0.9% 1,000 ML 1000 ML IV (04:10)
[2024-06-26 04:38] LABS: Erythrocyte Sedimentation Rate 19 MM/HR (0-15)
[2024-06-26 05:48] LABS: UR Morphine/Opiate cutoff 300 Negative (Negative); Ur Creatinine Normal (Normal); Ur Specific Gravity Normal (Normal); Urine Amphetamines Positive (Negative); Urine Barbiturates Negative (Negative); Urine Benzodiazepines Negative (Negative); Urine Cocaine Negative (Negative); Urine MDMA Negative (Negative); Urine Methadone Negative (Negative); Urine Methamphetamines Positive (Negative); Urine Oxycodone Negative (Negative); Urine Phencyclidine Negative (Negative); Urine Tetrahydrocannabinol Negative (Negative); Urine Tricyclic Antidepressant Negative (Negative); Urine pH Normal (Normal)
--- NOTE | 2024-06-26 06:26 | PM.HP.1 ---
History of Present Illness History of Present Illness Chief complaint: left hand infected and swollen Narrative: 48 year old male with no reported past medical history presents with left hand pain and swelling. Per the patient's report, over the last few days, the patient noticed that the dorsum of his left hand started to have increase redness and swelling in the middle of the dorusm of his hand. The patient denies any known injury puncture wound to his left hand. 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 The patient however reports that he sometimes scratch his hands and that might have caused the infection. The patient otherwise denies any fever, chills, nausea, vomiting, chest pain or shortness of breath. In our ER, the patient was hemodynamically and has no sign of sepsis. The patient xray and CT hand shows no acute finding such as abscess or bone involvement. However, due to severity of the cellulitis, our ER physician requested admission for antibiotics. Note patient was given IV Ceftriaxone and IV Vancomycin. [facility] Medical History Skin problem Foot pain Ankle pain Kidney stones Family History Father Cancer Grandfather Cancer Social History household members: significant other Smoking Status: Current every day smoker Meds Home Medications and Allergies Home Medications Medication Instructions Recorded Confirmed Type No Known Home Medications 06/26/24 06/26/24 History Allergies Allergy/AdvReac Type Severity Reaction Status Date / Time penicillin V [PENICILLIN V] Allergy Unknown unknown Verified 06/13/23 00:05 Review of Systems Review of Systems ROS: Yes All systems reviewed with the patient and are negative except as otherwise documented Exam Vital Signs (past 8 hours): - 06/25/24 23:32 06/26/24 00:02 06/26/24 00:03 Temperature 98.7 F Pulse Rate 80 85 Respiratory Rate 16 Blood Pressure 151/97 H 124/89 Pulse Oximetry 97 99 Oxygen Delivery Method Room Air 06/26/24 00:30 06/26/24 01:00 06/26/24 01:30 Temperature Pulse Rate 82 82 79 Respiratory Rate Blood Pressure Pulse Oximetry 97 98 97 Oxygen Delivery Method 06/26/24 02:00 06/26/24 06:08 Temperature 98.4 F Pulse Rate 77 80 Respiratory Rate 18 Blood Pressure 155/102 H Pulse Oximetry 99 98 Oxygen Delivery Method Oxygen Delivery Method Room Air Narrative Exam Narrative: Physical Exam: GENERAL: The patient is not in any acute distressed. Awake and alert. HEENT: Nonicteric sclerae, PERRLA, EOMI. Oropharynx clear. Moist mucous membranes. Conjunctivae appear well perfused. HEART: Regular rate and rhythm without murmurs. No lower extremities edema. LUNGS: Clear to auscultation bilaterally. No wheezing, crackles or rhonchi ABDOMEN: Soft, positive bowel sounds, nontender. SKIN: Swelling and erythema noted on dorsum of left hand. Otherwise, No rash, no excessive bruising, petechiae, or purpura. NEUROLOGIC: AxO x 3. Cranial nerves II-XII intact without motor/sensory deficit. Objective Labs 06/26/24 03:20 06/26/24 03:20 Labs: Laboratory Results - last 24 hr 06/26/24 06/26/24 03:20 05:18 WBC 9.8 RBC 4.40 L Hgb 13.1 L Hct 39.0 L MCV 88.7 MCH 29.7 MCHC 33.5 RDW 13.2 Plt Count 226 Neut % (Auto) 62.1 Lymph % (Auto) 24.8 L [place] % (Auto) 9.2 Eos % (Auto) 3.2 Baso % (Auto) 0.7 Neut # (Auto) 6100 Lymph # (Auto) 2400 [place] # (Auto) 900 Eos # (Auto) 300 Baso # (Auto) 100 ESR 19 H Sodium 133 L Potassium 3.7 Chloride 99 Carbon Dioxide 31 BUN 9 Creatinine 0.67 Estimated GFR > 60 BUN/Creatinine Ratio 13.4 Glucose 107 H Lactate 0.7 Calcium 9.2 Total Bilirubin 0.6 AST 20 ALT 18 Alkaline Phosphatase 62 C-Reactive Protein 4.9 H Total Protein 7.3 Albumin 3.9 Globulin 3.4 Albumin/Globulin Ratio 1.1 U Opiates 300ng/mL cut Negative Ur Oxycodone Screen Negative Urine Methadone Screen Negative Ur Barbiturates Screen Negative U Tricyclic Antidepress Negative Ur Phencyclidine Scrn Negative Ur Amphetamines Screen Positive H U Methamphetamines Scrn Positive H Ur MDMA Scrn (Ecstasy) Negative U Benzodiazepines Scrn Negative Urine Cocaine Screen Negative U Marijuana (THC) Screen Negative Urine pH Normal Urine Specific [place] Normal Ur Creatinine Normal Assessment & Plan Assessment & Plan narrative: Left hand cellulitis. Admit the patient to medical inpatient. Note patient not septic at this time. CT hand shows no abscess. Continue IV Ceftriaxone/IV Vancomycin. DVT PPx SCDs and ambulation Code status full code Disposition home in 2 days Time-Based Coding :: [TOTAL MINUTES] spent with patient and on the chart (including review of chart, obtaining history, exam, reviewing outside data, placing orders, documenting exam and treatment plan, and counseling patient) on [DATE].
--- NOTE | 2024-06-26 06:42 | PC.WOUNDPHOT ---
Addendum entered by Madelyn Hussein R.N. 06/26/24 06:43: right foot Original Note:
--- NOTE | 2024-06-26 08:58 | PC.NURSE ---
Addendum entered by Sheron Rousseau R.N. 06/26/24 17:29: opened up patients wound to l.hand cellulitis and a wound culture was sent down to lab. Addendum entered by Sheron Rousseau R.N. 06/26/24 12:18: Patient had a shower a few minutes ago, tolerating his Vanco well. Eating lunch now. Cellulitis wound to top of hand oozing some serous fluid (pus?), applied 4x4 to area and some coban. Making sure that dressing was not to tightly applied. Original Note: Assess-Patient is alert and oriented x4, he is sleepy. Patient has some abrasions, and a left red, swollen hand with an open soar in the middle of the cellulitis area. His hands, and feet are dirty, it appears that patient has not bathed in sometime. He was offered a shower after he rests and he was agreeable to this. Yobany denies pain and is comfortable at this time.
[2024-06-26] MEDS: VANCOMYCIN 1,250 MG/250 ML PIGGYBACK 250 MG IV ×2 (12:05→20:58)
[2024-06-26] MEDS: LIDOCAINE 1% 20 ML 3 ML SUBCUT (12:45)
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
--- NOTE | 2024-06-26 18:20 | P.CONS_ITS ---
History of Present Illness Consult details Date Patient Seen: 06/26/24 Time Patient Seen: 18:20 Chief complaint: left hand infected and swollen Reason for consult: Left hand infection Requesting provider: Spencer Hernandez Narrative: 48-year-old male left hand dorsal infection erythema pain and some drainage. Noted that it started a few days ago. No specific injury. Does have a history of previous right forearm abscess couple of years ago treated at this hospital. Denies any IV drug use or recent illness. Does have some superficial lesions near his toes on the right foot that he states he is always present. No history of psoriasis. Received IV vanc and ceftriaxone. Had small [place] of the swelling by hospitalist and a culture was taken. Not yet returned. The patient states feels better than it did earlier in the day swelling decreased. Denies any fevers or chills. No numbness or tingling. States has more motion than previous. Current smoker about a pack a day used to be 3 packs. Meds Home Medications and Allergies Home Medications Medication Instructions Recorded Confirmed Type No Known Home Medications 06/26/24 06/26/24 History Allergies Allergy/AdvReac Type Severity Reaction Status Date / Time penicillin V [PENICILLIN V] Allergy Unknown unknown Verified 06/13/23 00:05 Review of Systems Review of Systems ROS: Yes All systems reviewed with the patient and are negative except as otherwise documented Exam Vital Signs (past 8 hours): - 06/26/24 12:00 06/26/24 16:00 Temperature 97.7 F 97.2 F L Pulse Rate 81 71 Respiratory Rate 18 17 Blood Pressure 134/84 147/94 H Pulse Oximetry 97 99 Oxygen Flow Rate 0 0 Oxygen Delivery Method Room Air Oxygen Flow Rate 0 Narrative Exam Narrative: Normocephalic atraumatic, no acute distress, alert and oriented Respiratory exam unlabored on room air lungs clear Heart regular rate and rhythm No tracking or ascending cellulitis on the extremities. Left upper extremity demonstrates mild swelling centered over the dorsum of the hand with a dorsal central wound and scant purulent drainage. Tiny area of fluctuance with gentle pressure small amount of purulence is expressed. The patient tolerates this. Palpable radial pulse. Demonstrates active finger flexion and extension wrist flexion and extension without limitation. Elbow flexion and extension without limitation. Sensation grossly intact median radial ulnar nerves. Objective Imaging Three views left hand x-ray: My impression: Three views of the left hand no obvious fractures. Dorsal swelling, soft tissue Radiologist's impression: No obvious fracture dorsal swelling. Labs 06/26/24 03:20 06/26/24 03:20 Labs: Laboratory Results - last 24 hr 06/26/24 06/26/24 03:20 05:18 WBC 9.8 RBC 4.40 L Hgb 13.1 L Hct 39.0 L MCV 88.7 MCH 29.7 MCHC 33.5 RDW 13.2 Plt Count 226 Neut % (Auto) 62.1 Lymph % (Auto) 24.8 L [place] % (Auto) 9.2 Eos % (Auto) 3.2 Baso % (Auto) 0.7 Neut # (Auto) 6100 Lymph # (Auto) 2400 [place] # (Auto) 900 Eos # (Auto) 300 Baso # (Auto) 100 ESR 19 H Sodium 133 L Potassium 3.7 Chloride 99 Carbon Dioxide 31 BUN 9 Creatinine 0.67 Estimated GFR > 60 BUN/Creatinine Ratio 13.4 Glucose 107 H Lactate 0.7 Calcium 9.2 Total Bilirubin 0.6 AST 20 ALT 18 Alkaline Phosphatase 62 C-Reactive Protein 4.9 H Total Protein 7.3 Albumin 3.9 Globulin 3.4 Albumin/Globulin Ratio 1.1 U Opiates 300ng/mL cut Negative Ur Oxycodone Screen Negative Urine Methadone Screen Negative Ur Barbiturates Screen Negative U Tricyclic Antidepress Negative Ur Phencyclidine Scrn Negative Ur Amphetamines Screen Positive H U Methamphetamines Scrn Positive H Ur MDMA Scrn (Ecstasy) Negative U Benzodiazepines Scrn Negative Urine Cocaine Screen Negative U Marijuana (THC) Screen Negative Urine pH Normal Urine Specific [place] Normal Ur Creatinine Normal [facility] Medical History Skin problem Foot pain Ankle pain Kidney stones Family History Father Cancer Grandfather Cancer Social History household members: significant other Tobacco & Substance Use Smoking Status: Current every day smoker Assessment & Plan Assessment and plan (1) Abscess of dorsum of left hand: Status: Acute (2) Cellulitis of left hand: Status: Acute Plan Dorsal hand swelling with small dorsal abscess, soft tissue no signs of deeper joint involvement. This has been open slightly and there is a scant amount of purulent drainage. Little extra is expressed on my exam. No apparent residuals or deep abscess no indication for further surgery at this time. Recommend b.i.d. warm soapy warm water soaks for 10-20 minutes and then dressing changes with gauze and a wrap. Recommend advanced oral antibiotics as cultures allow would do for MRSA coverage as well. Current cultures pending. Can follow up with PCP. If worsening can follow up with ortho, but expect this to resolve with local care and antibiotics Time-Based Coding :: [TOTAL MINUTES] spent with patient and on the chart (including review of chart, obtaining history, exam, reviewing outside data, placing orders, documenting exam and treatment plan, and counseling patient) on [DATE].
--- NOTE | 2024-06-26 19:27 | P.PN_ITS ---
Exam Vital Signs (past 8 hours): - 06/26/24 12:00 06/26/24 16:00 Temperature 97.7 F 97.2 F L Pulse Rate 81 71 Respiratory Rate 18 17 Blood Pressure 134/84 147/94 H Pulse Oximetry 97 99 Oxygen Flow Rate 0 0 Oxygen Delivery Method Room Air Oxygen Flow Rate 0 Narrative Exam Narrative: Normocephalic atraumatic, no acute distress, alert and oriented Respiratory exam unlabored on room air lungs clear Heart regular rate and rhythm No tracking or ascending cellulitis on the extremities. Left upper extremity demonstrates mild swelling centered over the dorsum of the hand with a dorsal central wound and scant purulent drainage. Tiny area of fluctuance with gentle pressure small amount of purulence is expressed. The patient tolerates this. Palpable radial pulse. Demonstrates active finger flexion and extension wrist flexion and extension without limitation. Elbow flexion and extension without limitation. Sensation grossly intact median radial ulnar nerves. Objective Labs 06/26/24 03:20 06/26/24 03:20 Labs: Laboratory Results - last 24 hr 06/26/24 06/26/24 03:20 05:18 WBC 9.8 RBC 4.40 L Hgb 13.1 L Hct 39.0 L MCV 88.7 MCH 29.7 MCHC 33.5 RDW 13.2 Plt Count 226 Neut % (Auto) 62.1 Lymph % (Auto) 24.8 L [place] % (Auto) 9.2 Eos % (Auto) 3.2 Baso % (Auto) 0.7 Neut # (Auto) 6100 Lymph # (Auto) 2400 [place] # (Auto) 900 Eos # (Auto) 300 Baso # (Auto) 100 ESR 19 H Sodium 133 L Potassium 3.7 Chloride 99 Carbon Dioxide 31 BUN 9 Creatinine 0.67 Estimated GFR > 60 BUN/Creatinine Ratio 13.4 Glucose 107 H Lactate 0.7 Calcium 9.2 Total Bilirubin 0.6 AST 20 ALT 18 Alkaline Phosphatase 62 C-Reactive Protein 4.9 H Total Protein 7.3 Albumin 3.9 Globulin 3.4 Albumin/Globulin Ratio 1.1 U Opiates 300ng/mL cut Negative Ur Oxycodone Screen Negative Urine Methadone Screen Negative Ur Barbiturates Screen Negative U Tricyclic Antidepress Negative Ur Phencyclidine Scrn Negative Ur Amphetamines Screen Positive H U Methamphetamines Scrn Positive H Ur MDMA Scrn (Ecstasy) Negative U Benzodiazepines Scrn Negative Urine Cocaine Screen Negative U Marijuana (THC) Screen Negative Urine pH Normal Urine Specific [place] Normal Ur Creatinine Normal PFSH Medical History Skin problem Foot pain Ankle pain Kidney stones Family History Father Cancer Grandfather Cancer Social History household members: significant other Smoking Status: Current every day smoker Assessment & Plan Assessment & Plan narrative: Left hand cellulitis. Admit the patient to medical inpatient. Note patient not septic at this time. CT hand shows no abscess. Continue IV Ceftriaxone/IV Vancomycin. DVT PPx SCDs and ambulation Code status full code Disposition home in 2 days Time-Based Coding :: [TOTAL MINUTES] spent with patient and on the chart (including review of chart, obtaining history, exam, reviewing outside data, placing orders, documenting exam and treatment plan, and counseling patient) on [DATE].
--- NOTE | 2024-06-26 19:28 | PM.HP.1 ---
History of Present Illness History of Present Illness Date Patient Seen: 06/26/24 Time Patient Seen: 14:00 Chief complaint: left hand infected and swollen Narrative: 48 year old male with no reported past medical history presents with left hand pain and swelling. Per the patient's report, over the last few days, the patient noticed that the dorsum of his left hand started to have increase redness and swelling in the middle of the dorusm of his hand. The patient denies any known injury puncture wound to his left hand. 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 The patient however reports that he sometimes scratch his hands and that might have caused the infection. The patient otherwise denies any fever, chills, nausea, vomiting, chest pain or shortness of breath. In our ER, the patient was hemodynamically and has no sign of sepsis. The patient xray and CT hand shows no acute finding such as abscess or bone involvement. However, due to severity of the cellulitis, our ER physician requested admission for antibiotics. Note patient was given IV Ceftriaxone and IV Vancomycin. After my evaluation I sent an image to the orthopedic surgeon, recommended bedside I&D which was performed with small incision and expression of a small amount of purulent material, culture obtained and sent to the lab. [facility] Medical History Skin problem Foot pain Ankle pain Kidney stones Family History Father Cancer Grandfather Cancer Social History household members: significant other Smoking Status: Current every day smoker Meds Home Medications and Allergies Home Medications Medication Instructions Recorded Confirmed Type No Known Home Medications 06/26/24 06/26/24 History Allergies Allergy/AdvReac Type Severity Reaction Status Date / Time penicillin V [PENICILLIN V] Allergy Unknown unknown Verified 06/13/23 00:05 Review of Systems Review of Systems Narrative: All other systems reviewed with the patient and are negative unless otherwise stated. Exam Vital Signs (past 8 hours): - 06/26/24 12:00 06/26/24 16:00 Temperature 97.7 F 97.2 F L Pulse Rate 81 71 Respiratory Rate 18 17 Blood Pressure 134/84 147/94 H Pulse Oximetry 97 99 Oxygen Flow Rate 0 0 Oxygen Delivery Method Room Air Oxygen Flow Rate 0 Narrative Exam Narrative: Gen: No acute distress CV: RRR Abd: S NT ND Ext: NO LE edema. Left hand with 4x4 cm area erythema over the dorsum, tenderness, and central purulence, Objective Labs 06/26/24 03:20 06/26/24 03:20 Labs: Laboratory Results - last 24 hr 06/26/24 06/26/24 03:20 05:18 WBC 9.8 RBC 4.40 L Hgb 13.1 L Hct 39.0 L MCV 88.7 MCH 29.7 MCHC 33.5 RDW 13.2 Plt Count 226 Neut % (Auto) 62.1 Lymph % (Auto) 24.8 L [place] % (Auto) 9.2 Eos % (Auto) 3.2 Baso % (Auto) 0.7 Neut # (Auto) 6100 Lymph # (Auto) 2400 [place] # (Auto) 900 Eos # (Auto) 300 Baso # (Auto) 100 ESR 19 H Sodium 133 L Potassium 3.7 Chloride 99 Carbon Dioxide 31 BUN 9 Creatinine 0.67 Estimated GFR > 60 BUN/Creatinine Ratio 13.4 Glucose 107 H Lactate 0.7 Calcium 9.2 Total Bilirubin 0.6 AST 20 ALT 18 Alkaline Phosphatase 62 C-Reactive Protein 4.9 H Total Protein 7.3 Albumin 3.9 Globulin 3.4 Albumin/Globulin Ratio 1.1 U Opiates 300ng/mL cut Negative Ur Oxycodone Screen Negative Urine Methadone Screen Negative Ur Barbiturates Screen Negative U Tricyclic Antidepress Negative Ur Phencyclidine Scrn Negative Ur Amphetamines Screen Positive H U Methamphetamines Scrn Positive H Ur MDMA Scrn (Ecstasy) Negative U Benzodiazepines Scrn Negative Urine Cocaine Screen Negative U Marijuana (THC) Screen Negative Urine pH Normal Urine Specific [place] Normal Ur Creatinine Normal Assessment & Plan Assessment & Plan narrative: 1. Left hand abscess and cellulitis - s/p small bedside I&D, minimal purulence expressed. Culture sent by me today. - continue antibiotics today with vancomycin and ceftriaxone - if improvement can discharge home tomorrow on oral antibiotics - appreciate orthopedic surgery evaluation today, discussed with Dr. Beltrán above management. Does not extend deep, continue soakings and antibiotics, no further surgical interventions required. - ESR and CRP only mildly elevated - CT without obvious deep abscess. - UDS positive for methamphetamines and amphetamines. Code: Full, surrogate is patient's spouse DVT: Lovenox daily I have utilized all available immediate resources to obtain, update, or review the patient's current medications. Dispo: observation, possible discharge home tomorrow depending on clinical course on IV antibiotics after the above interventions today. Additional history obtained via discussions with the ER provider. These discussions contributed to the creation of the above assessment and plan. I have reviewed patient's presenting documentation, labs, and imaging personally. Time-Based Coding :: [TOTAL MINUTES] spent with patient and on the chart (including review of chart, obtaining history, exam, reviewing outside data, placing orders, documenting exam and treatment plan, and counseling patient) on [DATE].
--- NOTE | 2024-06-26 22:24 | PM.PROC.1 ---
Procedures Date/Time Date of procedure: 06/26/24 Time of procedure: 12:40 General Procedure description: 48 M with possible L hand abscess, discussed with orthopedics recommended for lancing and drainage. L dorsum of his hand was prepped with chloraprep, injected 2 cc of 1% lidocaine into the area and made a small incision with #11 blade at bedside. A small amount of purulence was able to be expressed. This was collected and sent for culture and gram stain. Attempted to probe deeper with sterile cotton cue tip but did not extend deeper or laterally. Area not deep enough for packing. Abscess I/D Site: hand (left) Side (if applicable): left Sedation/analgesia: none Anesthetic used: lidocaine 1% Technique: incised with #11 blade Amount of fluid (mL): 1 Irrigation: No Packing used?: none Complications: other (none)
[2024-06-27 04:00] VITALS: BP 145/89; PULSE 90; RESP 16; TEMP 37; O2SAT 96
[2024-06-27] MEDS: VANCOMYCIN 1,250 MG/250 ML PIGGYBACK 250 MG IV ×3 (04:09→19:46)
[2024-06-27 05:43] LABS: Add Manual Diff / Slide Review NO; Basophils Absolute Auto 0 /uL (0-100); Basophils Percent Auto 0.5 % (0-2); Eosinophils Absolute Auto 400 /uL (0-450); Hematocrit 36.3 % (41-53); Hemoglobin 12.4 g/dL (13.5-17.5); Lymphocytes Absolute Auto 2700 /uL (1100-4500); Lymphocytes Percent Auto 30.8 % (25-40); Mean Corpuscular HGB Conc 34.2 % (30-36); Mean Corpuscular Hemoglobin 30.2 PG (26-34); Mean Corpuscular Volume 88.2 fL (80-100); Monocytes Absolute Auto 800 /uL (0-900); Monocytes Percent Auto 9.3 % (3-14); Neutrophils Absolute Auto 4700 /uL (1500-7000); Neutrophils Percent Auto 54.4 % (50-75); Platelet Count 236 X10^3/uL (150-400); Red Blood Cell Count 4.11 X10^6/uL (4.5-5.9); Red Cell Distribution Width 13.4 % (11.6-14.8); White Blood Cell Count 8.7 X10^3/uL (4.5-11.0)
[2024-06-27 05:48] LABS: BUN Creatinine Ratio 18.9 (6-22); Blood Urea Nitrogen 14 mg/dL (9-20); Calcium 8.7 mg/dL (8.4-10.2); Carbon Dioxide 29 mmol/L (22-32); Chloride 104 mmol/L (98-107); Estimated Glomerular Filt Rate > 60 mL/min (>60); Glucose 108 mg/dL (70-100); HEMOLYSIS < 15 (0-50); Potassium 3.7 mmol/L (3.4-5.1); Sodium 136 mmol/L (137-145)
[2024-06-27 08:00] VITALS: BP 141/88; PULSE 77; RESP 14; TEMP 36.4; O2SAT 95
[2024-06-27 12:00] VITALS: BP 144/93; PULSE 78; RESP 14; TEMP 35.9; O2SAT 95
[2024-06-27 12:33] LABS: Vancomycin Trough 9.2 ug/mL (10-20)
--- NOTE | 2024-06-27 12:54 | CM.DPC ---
Addendum entered and electronically signed by JULIAN Aggarwal 06/27/24 13:04: Pt has a new pt appt scheduled for 07/12/24 at 10:[address] Carrasquillo to [facility]. Original Note: DCP Cont. Reviewed EMR and team rounds for status updates. Per Hospitalist, pt will need 1-more day before being medically cleared for home d/c, as his arm was still swollen today. Will monitor for any further evolving d/c needs.
[2024-06-27 16:00] VITALS: BP 157/94; PULSE 85; RESP 18; TEMP 36.3; O2SAT 98
--- NOTE | 2024-06-27 16:13 | P.PN_ITS ---
Subjective Subjective Interval history: 48 M left hand abscess and cellulitis, unchanged and left arm swelling is a bit worse today. Exam Vital Signs (past 8 hours): - 06/27/24 12:00 Temperature 96.6 F L Pulse Rate 78 Respiratory Rate 14 Blood Pressure 144/93 H Pulse Oximetry 95 Oxygen Flow Rate 0 Oxygen Delivery Method Room Air Oxygen Flow Rate 0 Narrative Exam Narrative: Gen: No acute distress CV: RRR Abd: S NT ND Ext: NO LE edema. Left hand with 4x4 cm area erythema over the dorsum, tenderness, and central purulence unchanged since yesterday. Objective Labs 06/27/24 05:15 06/27/24 05:15 Labs: Laboratory Results - last 24 hr 06/27/24 06/27/24 05:15 12:00 WBC 8.7 RBC 4.11 L Hgb 12.4 L Hct 36.3 L MCV 88.2 MCH 30.2 MCHC 34.2 RDW 13.4 Plt Count 236 Neut % (Auto) 54.4 Lymph % (Auto) 30.8 [place] % (Auto) 9.3 Eos % (Auto) 5.0 H Baso % (Auto) 0.5 Neut # (Auto) 4700 Lymph # (Auto) 2700 [place] # (Auto) 800 Eos # (Auto) 400 Baso # (Auto) 0 Sodium 136 L Potassium 3.7 Chloride 104 Carbon Dioxide 29 BUN 14 Creatinine 0.74 Estimated GFR > 60 BUN/Creatinine Ratio 18.9 Glucose 108 H Calcium 8.7 Vancomycin Trough 9.2 L PFSH Medical History Skin problem Foot pain Ankle pain Kidney stones Family History Father Cancer Grandfather Cancer Social History household members: significant other Smoking Status: Current every day smoker Assessment & Plan Assessment & Plan narrative: 1. Left hand abscess and cellulitis - s/p small bedside I&D, minimal purulence expressed. Culture sent by me, now with staph aureus. - continue antibiotics today with vancomycin and ceftriaxone - if improvement possible discharge home tomorrow on oral antibiotics - appreciate orthopedic surgery evaluation, discussed with Dr. Beltrán above management. Does not extend deep, continue soakings and antibiotics, no further surgical interventions required. - ESR and CRP only mildly elevated - CT without obvious deep abscess. - UDS positive for methamphetamines and amphetamines. Code: Full, surrogate is patient's spouse DVT: Lovenox daily I have utilized all available immediate resources to obtain, update, or review the patient's current medications. Dispo: observation, possible discharge home tomorrow depending on clinical course on IV antibiotics after the above interventions today. Additional history obtained via discussions with the ER provider. These discussions contributed to the creation of the above assessment and plan. I have reviewed patient's presenting documentation, labs, and imaging personally. Time-Based Coding :: [TOTAL MINUTES] spent with patient and on the chart (including review of chart, obtaining history, exam, reviewing outside data, placing orders, documenting exam and treatment plan, and counseling patient) on [DATE].
[2024-06-27 20:00] VITALS: BP 174/111; PULSE 78; RESP 18; TEMP 36.1; O2SAT 95
[2024-06-27] MEDS: cefTRIAXone 1,000 MG in SODIUM CHLORIDE 0.9% 100 ML 200 MG IV (21:13)
[2024-06-27] MEDS: SODIUM CHLORIDE 0.9% FLUSH 10 ML IV (21:14)
[2024-06-28] VITALS: BP 128/79; PULSE 75; RESP 16; TEMP 36.2; O2SAT 95
[2024-06-28] MEDS: SODIUM CHLORIDE 0.9% FLUSH 10 ML IV ×2 (03:50→09:00)
[2024-06-28 04:00] VITALS: BP 154/95; PULSE 73; RESP 18; TEMP 35.9; O2SAT 96
[2024-06-28] MEDS: VANCOMYCIN 1,250 MG/250 ML PIGGYBACK 250 MG IV ×2 (04:00→13:58)
[2024-06-28 09:56] VITALS: BP 153/95; PULSE 73; RESP 18; TEMP 36.2; O2SAT 95
--- NOTE | 2024-06-28 12:42 | PM.DS.1 ---
History of Present Illness History of Present Illness Date Patient Seen: 06/28/24 Time Patient Seen: 12:42 Chief complaint: left hand infected and swollen Narrative: 48 year old male with no reported past medical history presents with left hand pain and swelling. Per the patient's report, over the last few days, the patient noticed that the dorsum of his left hand started to have increase redness and swelling in the middle of the dorusm of his hand. The patient denies any known injury puncture wound to his left hand. 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 The patient however reports that he sometimes scratch his hands and that might have caused the infection. The patient otherwise denies any fever, chills, nausea, vomiting, chest pain or shortness of breath. In our ER, the patient was hemodynamically and has no sign of sepsis. The patient xray and CT hand shows no acute finding such as abscess or bone involvement. However, due to severity of the cellulitis, our ER physician requested admission for antibiotics. Note patient was given IV Ceftriaxone and IV Vancomycin. After my evaluation I sent an image to the orthopedic surgeon, recommended bedside I&D which was performed with small incision and expression of a small amount of purulent material, culture obtained and sent to the lab. Discharge Providers Provider Date of admission: 06/26/24 05:09 Discharge Date: 06/28/24 Discharge provider: Spencer Hernandez DO Summary Hospital Course Discharge Diagnosis: 1. Left hand abscess and cellulitis Hospital Course: This is a 48-year-old male no known past medical history who was admitted with left hand presumed cellulitis, though the following morning he had a discrete collection on the top of his hand consistent with abscess. Neva perform a small incision and drainage on the day of admission, and Orthopedic surgery also evaluated which was much appreciated. The patient was started on ceftriaxone and vancomycin. On hospital day 1 he had slight worsening swelling of his left arm, which improved on hospital day 2. On hospital day 2 he continued to showed improvement, and his abscess was still draining. He was instructed to continue warm soapy soaks twice a day and continued to try an express fluid from the top of his hand. Cultures from his incision and drainage showed MRSA, and the patient was discharged on oral doxycycline for another 7 days after discharge. He was provided return precautions including worsening of his abscess, pain or swelling, fever and/or chills. Time Spent with Patient Time spent: Greater than 30 minutes Exam Vital Signs (past 8 hours): - 06/28/24 09:56 Temperature 97.1 F L Pulse Rate 73 Respiratory Rate 18 Blood Pressure 153/95 H Pulse Oximetry 95 Oxygen Flow Rate 0 Oxygen Delivery Method Room Air Oxygen Flow Rate 0 Narrative Exam Narrative: Gen: No acute distress CV: RRR Abd: S NT ND Ext: NO LE edema. Left hand with 3x3 cm area erythema over the dorsum, tenderness, and central purulence improving today Objective Labs 06/27/24 05:15 06/27/24 05:15 PFSH Medical History Skin problem Foot pain Ankle pain Kidney stones Family History Father Cancer Grandfather Cancer Social History household members: significant other Smoking Status: Current every day smoker Discharge Plan Discharge Plan Patient Disposition: Home Provider Discharge Comment: Admitted to the hospital with left hand abscess, continue warm soapy soaks at home twice daily. Continue antibiotics. If not improving or still purulence nearing completion of antibiotics, feel free to return to urgent care or ER. Discharge orders & Medications Prescriptions: New doxycycline hyclate 100 mg tablet 100 mg PO BID 7 Days Qty: 14 0RF oxycodone 5 mg tablet 5 mg PO Q6H PRN (Reason: pain) 7 Days Qty: 14 0RF Discharge Health Status Multidrug resistant organism: MRSA Diet/Activity/Treatments Diet: Diet as Tolerated and Regular Activity: As tolerated, no restrictions. Skin/Wound/Dressing Care Other wound treatment: see above Visit Report/Discharge Packet Instructions: DI for Cellulitis -- Adult, DI for Incision and Drainage of a Skin Abscess, DI for Prescription Opioid Use Stand Alone Forms: Patient Portal/API, Stroke Signs & Symptoms Discharge Data Attending Provider: Ayan Chavez Admit Date/Time: 06/26/24 05:09
--- NOTE | 2024-06-28 15:51 | PC.NURSE ---
Discharge: Pt feels ready to d/c to home. Seen by Dr. Hernandez and given d/c instructions. Last dose of antibiotics given. Sl delayed due to pt taking a long shower. Hand was redressed and discharge packet were completed by Eusebio VALLE. When this automobile service writer came to remove IV patient reported he didn't have any questions. He was walked out to his car. He had driven himself here.
== END 2024-06-28 15:40 | disposition home or self-care (01) ==
LOC: ED 06-26 00:10 → AC 06-26 05:12
PROVIDERS: Admitting Provider Internal Medicine; Emergency Provider Emergency Medicine; Referring Provider Emergency Medicine; Visit Provider Internal Medicine
DX: L03.114 Cellulitis of left upper limb (principal); L02.512 Cutaneous abscess of left hand; B95.61 Methicillin susceptible Staphylococcus aureus infection as the cause of diseases classified elsewhere; F17.210 Nicotine dependence, cigarettes, uncomplicated
CPT/HCPCS: 36415; 73130; 73201; 80048; 80053; 80202; 80305; 83605; 85025; 85651; 86140; 87040; 87070; 87075; 87077; 87147; 87186; 87205; 96365; 96366; 96375; 99284; 99291; G0378; J0696; Q9967

== ENCOUNTER 2024-12-17 04:03 | Observation (INO) | payer OTHER, SELFPAY ==
[2024-06-26 16:25] VITALS: BMI 27.3
[2024-12-17] VITALS (16 sets, daily range): BP systolic 140–169; BP diastolic 74–99; PULSE 89–106; RESP 18–29; TEMP 36.6–37.3; O2SAT 89–95; BMI 27.3
--- NOTE | 2024-12-17 04:09 | ED.URI ---
HPI - URI/Sore Throat General Chief Complaint: Shortness of Breath/Dyspnea Stated Complaint: SOB, Cough Time Seen by Provider: 12/17/24 04:06 History of Present Illness HPI Narrative: 49-year-old smoker presents with shortness of breath, dyspnea on exertion, coughing, with sore throat, nasal congestion, body aches, since last evening despite using his inhaler with no significant relief of symptoms. Patient denies fever, nausea, vomiting, diarrhea, chest pain, urinary complaint, or sick contacts. Other than what is stated 14 point review of system is negative. Related Data Home Medications ?Medication ?Instructions ?Recorded ?Confirmed No Known Home Medications 07/12/24 07/12/24 Allergies Allergy/AdvReac Type Severity Reaction Status Date / Time penicillin V (PENICILLIN V) Allergy Unknown unknown Verified 07/12/24 07:59 Review of Systems Review of Systems ROS Unobtainable: All systems reviewed & are unremarkable except as noted in HPI and below Patient History Medical History Skin problem Foot pain Ankle pain Kidney stones Family History Father Cancer Grandfather Cancer Social History household members: significant other alcohol intake frequency: a few times a month Exam Narrative Exam Narrative: GENERAL: [49] year old patient appears stated age. Well-developed patient, in mild distress. HEAD: Atraumatic. Normocephalic. EYES: Pupils equal round and reactive. Extraocular motions intact. No scleral icterus. No injection or drainage. ENT: Nose without bleeding, purulent drainage. Throat without erythema, tonsillar hypertrophy or exudate. Airway patent. NECK: Trachea midline. Non tender CARDIOVASCULAR: Regular rate and rhythm without murmurs, gallops, or rubs. LUNG: Breath sounds decreased with faint crackles at the base. GASTROINTESTINAL: Abdomen soft, non-tender, nondistended. EXTREMITIES: No edema or joint tenderness. BACK: Nontender without deformity or crepitance. No flank tenderness. NEURO: AOx3. SKIN: No rash or erythema of visible areas MDM - URI/Sore Throat ECG Data Interpretation: Sinus Tach HR 102 WA 184 QRS [address]-t wave change MDM Narrative Medical decision making narrative: All lab work, vital signs, nurse triage note, medication list previous ER visits and all imaging studies reviewed. CTA showed no pulmonary embolism aortic dissection or aneurysm what bilateral bronchial wall thickening and scattered mucus plugging suggesting bronchitis. Chest x-ray showed no acute cardiopulmonary process. Patient given DuoNebs and Solu-Medrol here along with Rocephin and Zithromax.. COVID flu RSV is negative. When patient arrived O2 sat was 88% on room air patient despite giving steroids and neb treatments required 3 L of O2 sat at 94% and patient is not on home O2. Procalcitonin 0.05, lactic acid 2.0, troponin is normal, EKG showed sinus tach HR [address]-T wave changes. Differential diagnosis includes sepsis, pneumonia, PE, COPD, asthmatic bronchitis. Discharge Plan Departure Patient Disposition: Admitted As Inpatient Clinical Impression: COPD (chronic obstructive pulmonary disease) with acute bronchitis Admit Date/Time: 12/17/24 06:11 Admit Provider: Ayan Chavez
--- NOTE | 2024-12-17 04:11 | PC.NURSE ---
pt with c/o general malaise, nasal congestion, cough and SOB states he just feels like he can't move because he hurts all over, thinks he has pneumonia again, did not take anything for the discomfort prior to coming to the ED
--- NOTE | 2024-12-17 04:13 | EKG_ITS ---
[address] [address] Test Date: 2024-12-17 Pat Name: Yobany Lee Department: Room: Gender: Male Treatment Coordinator: VIRI : 1975 Requested By: Order Number: [id number] Reading MD: Virgil San MD Measurements Intervals [place] Rate: 102 P: 104 [place]: 184 QRS: 123 QRSD: 108 T: 24 QT: 342 QTc: 445 Interpretive Statements Suspect arm lead reversal, interpretation assumes no reversal Sinus tachycardia Left posterior fascicular block Nonspecific T wave abnormality Electronically Signed On 12-17-2024 9:16:48 PDT by Virgil San MD
--- NOTE | 2024-12-17 04:20 | DI.RAD.S_ITS ---
PROCEDURE: XR CHEST 1V INDICATIONS: SOB, poss pneumonia recurrence TECHNIQUE: One view of the chest was acquired. COMPARISON: None. FINDINGS AND IMPRESSION: No airspace consolidation or pleural effusion on this single view study with low lung volumes. Normal heart size. Unremarkable osseous structures. No significant discrepancy from the preliminary report. Dictated by: Bertram Sagastume M.D. on 12/17/2024 at 8:20 Approved by: Bertram Sagastume M.D. on 12/17/2024 at 8:21
[2024-12-17] MEDS: ALBUTEROL/IPRATROPIUM 3 ML AMPUL INH ×4 (04:28→19:00)
[2024-12-17 04:36] LABS: Add Manual Diff / Slide Review NO; Basophils Absolute Auto 100 /uL (0-100); Basophils Percent Auto 0.6 % (0-2); Eosinophils Absolute Auto 200 /uL (0-450); Eosinophils Percent Auto 2.2 % (2-4); Hematocrit 41.2 % (41-53); Hemoglobin 14.2 g/dL (13.5-17.5); Lymphocytes Absolute Auto 1100 /uL (1100-4500); Lymphocytes Percent Auto 10.4 % (25-40); Mean Corpuscular HGB Conc 34.5 % (30-36); Mean Corpuscular Volume 87.1 fL (80-100); Monocytes Absolute Auto 400 /uL (0-900); Monocytes Percent Auto 4.1 % (3-14); Neutrophils Absolute Auto 8700 /uL (1500-7000); Neutrophils Percent Auto 82.7 % (50-75); Platelet Count 218 X10^3/uL (150-400); Red Blood Cell Count 4.73 X10^6/uL (4.5-5.9); Red Cell Distribution Width 14.1 % (11.6-14.8); White Blood Cell Count 10.5 X10^3/uL (4.5-11.0)
[2024-12-17] MEDS: methylPREDNISolone 125 MG/2 ML VIAL IV (04:36)
[2024-12-17 04:39] LABS: HCO3 VBG 29 mmol/L (24-28); Oxygen Saturation VBG 59 % (70-75); PCO2 VBG 49.2 mmHg (45-50); PO2 VBG 32 mmHg (35-45); Total CO2 VBG 28 mmol/L (24-29); pH VBG 7.38 (7.33-7.43)
[2024-12-17 04:49] LABS: Alanine Aminotransferase 19 IU/L (<50); Albumin 4.5 g/dL (3.5-5.0); Albumin Globulin Ratio 1.4 (1.0-2.8); Alkaline Phosphatase 61 U/L (38-126); Aspartate Aminotransferase 22 IU/L (17-59); BUN Creatinine Ratio 14.9 (6-22); Bilirubin Total 0.7 mg/dL (0.2-1.3); Blood Urea Nitrogen 11 mg/dL (9-20); Calcium 9.2 mg/dL (8.4-10.2); Carbon Dioxide 27 mmol/L (22-32); Chloride 102 mmol/L (98-107); Creatine Kinase 62 U/L (55-170); Estimated Glomerular Filt Rate > 60 mL/min (>60); Globulin 3.2 g/dL (1.7-4.1); Glucose 143 mg/dL (70-99); HEMOLYSIS < 15 (0-50); Lipase 39 U/L (23-300); Potassium 3.7 mmol/L (3.4-5.1); Sodium 137 mmol/L (137-145); Total Protein 7.7 g/dL (6.3-8.2)
--- NOTE | 2024-12-17 05:01 | DI.CT.S_ITS ---
PROCEDURE: CT ANGIO CHEST PE PROTOCOL INDICATIONS: cough sob 02 sat low TECHNIQUE: After the administration of intravenous contrast, 2 mm thick sections acquired from the pulmonary apices to the posterior costophrenic angles. 3-dimensional maximum intensity projection (MIP) coronal and sagittal reformats were then acquired through the thorax. For radiation dose reduction, the following was used: automated exposure control, adjustment of mA and/or kV according to patient size. COMPARISON: None. FINDINGS: Image quality: Mild motion artifact Lungs and pleura: Scattered nodularity and opacities, most confluent in the dependent bases. No drainable pleural effusions. There is milder involvement of the upper lobes. Mediastinum, heart, and esophagus: No acute pulmonary embolism. The distal- most arteries, particularly in the lower lungs, are not well evaluated due to motion artifact. There are mildly enlarged lymph nodes throughout the mediastinum and deann, for example right hilum measuring 1.5 cm in short axis. Unremarkable esophagus. Heart size is at the upper limit of normal. Chest wall and thyroid: Unremarkable Upper abdomen: Unremarkable on this arterial phase study Bones: There are degenerative osseous findings. No aggressive appearing osseous abnormality IMPRESSION: Bibasilar nodularity and opacities, most confluent in the dependent lower lungs, likely infectious. No acute pulmonary embolism. The distal-most arteries are obscured by motion artifact. Mildly enlarged mediastinal and hilar lymph nodes are indeterminate and possibly reactive. Consider surveillance imaging to ensure resolution of the above described lymph nodes and pulmonary findings. No significant discrepancy from the preliminary report. Dictated by: Bertram Sagastume M.D. on 12/17/2024 at 8:21 Approved by: Bertram Sagastume M.D. on 12/17/2024 at 8:25
[2024-12-17 05:02] LABS: Troponin I < 0.012 ng/mL (0.01-0.034)
[2024-12-17 05:11] LABS: Influenza A - CEPHEID Flu A NEGATIVE (NEGATIVE); Influenza B - CEPHEID Flu B NEGATIVE (NEGATIVE); Respiratory Syncytial Virus Negative (Negative)
[2024-12-17 05:14] LABS: COVID-19 CEPHEID 4-PLEX PCR Negative (Negative)
--- NOTE | 2024-12-17 06:22 | P.HP_ITS ---
History of Present Illness History of Present Illness Date Patient Seen: 12/17/24 Time Patient Seen: 06:23 Chief complaint: SOB, Cough Narrative: 49-year-old male 49-year-old male with past medical history of 50 pack plus year smoker presents with complaint of shortness of breath. Per the patient's report, over the last few days, the patient has been having bodyaches, sore throat, nasal congestion and shortness of breath on exertion. The patient however denies any fever, chills, chest pain, nausea, vomiting, diarrhea or syncope. The patient states that he does have inhalers at home which he used without any improvement of his symptoms. The patient also denies any known history of COPD despite a heavy smoking history. The patient also denies any history of asthma. In the emergency room, the patient was hemodynamically stable. Labs were relatively benign without any signs of sepsis. CT angio of the chest was done because the patient was needing 3 L of oxygen per nasal cannula. There is no PE that seen on CT angio of the chest but suggested possible pneumonia. The patient was started on Solu-Medrol, DuoNebs, azithromycin and ceftriaxone. [facility]LY [facility], [facility] Medical History Skin problem Foot pain Ankle pain Kidney stones Family History Father Cancer Grandfather Cancer Social History household members: significant other Smoking Status: Current every day smoker Meds Home Medications and Allergies Home Medications ?Medication ?Instructions ?Recorded ?Confirmed ?Type No Known Home Medications 07/12/2406/22 History Allergies Allergy/AdvReac Type Severity Reaction Status Date / Time penicillin V (PENICILLIN V) Allergy Unknown unknown Verified 07/12/24 07:59 Review of Systems Review of Systems ROS: Yes All systems reviewed with the patient and are negative except as otherwise documented Exam Vital Signs (past 8 hours): - 12/17/24 04:20 12/17/24 04:22 12/17/24 04:30 Temperature 99.2 F Pulse Rate 101 H 93 H 89 Respiratory Rate 18 18 Blood Pressure Pulse Oximetry 91 89 L 92 Oxygen Delivery Method Room Air Nasal Cannula Oxygen Flow Rate 3 Fraction of Inspired Oxygen 92 12/17/24 04:30 12/17/24 04:56 12/17/24 04:56 Temperature Pulse Rate 95 H 91 H Respiratory Rate Blood Pressure 169/89 H Pulse Oximetry 90 L 92 Oxygen Delivery Method Nasal Cannula Oxygen Flow Rate 2 Fraction of Inspired Oxygen 12/17/24 05:00 12/17/24 05:00 12/17/24 05:30 Temperature Pulse Rate 91 H 97 H Respiratory Rate 29 H Blood Pressure 169/95 H Pulse Oximetry 93 89 L Oxygen Delivery Method Oxygen Flow Rate Fraction of Inspired Oxygen 12/17/24 06:00 12/17/24 06:15 Temperature Pulse Rate 89 Respiratory Rate 23 Blood Pressure Pulse Oximetry 91 94 Oxygen Delivery Method Nasal Cannula Oximask Oxygen Flow Rate 5 Fraction of Inspired Oxygen Fraction of Inspired Oxygen 92 SaO2/FiO2 Ratio 98 Oxygen Delivery Method Oximask Oxygen Flow Rate 5 Narrative Exam Narrative: Physical Exam: GENERAL: The patient is not in any acute distressed. Awake and alert. HEENT: Nonicteric sclerae, PERRLA, EOMI. Oropharynx clear. Moist mucous membranes. Conjunctivae appear well perfused. HEART: Regular rate and rhythm without murmurs. No lower extremities edema. LUNGS: Clear to auscultation bilaterally. No wheezing, crackles or rhonchi ABDOMEN: Soft, positive bowel sounds, nontender. SKIN: No rash, no excessive bruising, petechiae, or purpura. NEUROLOGIC: AxO x 3. Cranial nerves II-XII intact without motor/sensory deficit. Objective Labs 12/17/24 04:16 12/17/24 04:16 Labs: Laboratory Results - last 24 hr 12/17/24 12/17/24 04:16 04:36 WBC 10.5 RBC 4.73 Hgb 14.2 Hct 41.2 MCV 87.1 MCH 30.0 MCHC 34.5 RDW 14.1 Plt Count 218 Neut % (Auto) 82.7 H Lymph % (Auto) 10.4 L [place] % (Auto) 4.1 Eos % (Auto) 2.2 Baso % (Auto) 0.6 Neut # (Auto) 8700 H Lymph # (Auto) 1100 [place] # (Auto) 400 Eos # (Auto) 200 Baso # (Auto) 100 VBG pH 7.38 VBG pCO2 49.2 VBG pO2 32 L VBG HCO3 29 H VBG Total CO2 28 VBG O2 Saturation 59 L VBG Base Excess 3.0 FiO2 % 32.0 % Sodium 137 Potassium 3.7 Chloride 102 Carbon Dioxide 27 BUN 11 Creatinine 0.74 Estimated GFR > 60 BUN/Creatinine Ratio 14.9 Glucose 143 H Lactate 2.0 Calcium 9.2 Total Bilirubin 0.7 AST 22 ALT 19 Alkaline Phosphatase 61 Total Creatine Kinase 62 Troponin I < 0.012 Total Protein 7.7 Albumin 4.5 Globulin 3.2 Albumin/Globulin Ratio 1.4 Lipase 39 Procalcitonin 0.050 SARS-CoV-2 (PCR) Negative Influenza A (RT-PCR) Flu a negative Influenza B (RT-PCR) Flu b negative RSV (PCR) Negative Assessment & Plan Assessment & Plan narrative: Likely undiagnosed COPD exacerbation. Admit the patient to medical inpatient. Patient is currently requiring oxygen and # pneumonia. Continue Solu-Medrol DuoNebs and treat underlying infection. Community-acquired pneumonia. Continue to treat with IV azithromycin and ceftriaxone. Monitor for sepsis. Acute respiratory failure with hypoxemia. Likely related to COPD exacerbation. Patient currently on 3 L of oxygen per nasal cannula. CT angio of the chest is negative for PE. Treat as above and wean down oxygen as able. Extensive tobacco abuse. Patient states that he used to smoke 3 packs/day but now cut down to about half a pack per day. Patient states he does not need nicotine patch for now. Patient has been counseled to quit. Will need PFTs as outpatient postdischarge to assess for underlying COPD. DVT prophylaxis Lovenox. CODE STATUS full code. Disposition likely home in 2 days. - As the provider of this telehealth evaluation, requested by the patient's evaluating physician, I attest that I introduced myself to the patient, provided my credentials and determined that telemedicine via a real-time, 2 way interactive audio and video platform is an appropriate and effective means of providing this service. - I reviewed the patient's chart and had a discussion with the member of the patient's treatment team. - The patient and I mutually agreed with continuation of this evaluation via telemedicine. The patient consented for the telemedicine evaluation. - This virtual encounter was taken place from [place] by Dr. Ayan Chavez. The patient was evaluated at [facility]. The encounter was approximately 35 minutes. The nurse was present during the entire time of the encounter and was able to move the stethoscope in appropriate directions. Time-Based Coding :: [TOTAL MINUTES] spent with patient and on the chart (including review of chart, obtaining history, exam, reviewing outside data, placing orders, documenting exam and treatment plan, and counseling patient) on [DATE].
[2024-12-17] MEDS: cefTRIAXone 1,000 MG in SODIUM CHLORIDE 0.9% 100 ML 200 MG IV (06:24)
--- NOTE | 2024-12-17 07:18 | PM.HP.1 ---
History of Present Illness History of Present Illness Date Patient Seen: 12/17/24 Chief complaint: SOB, Cough Narrative: From night doctor: 49-year-old male 49-year-old male with past medical history of 50 pack plus year smoker presents with complaint of shortness of breath. Per the patient's report, over the last few days, the patient has been having bodyaches, sore throat, nasal congestion and shortness of breath on exertion. The patient however denies any fever, chills, chest pain, nausea, vomiting, diarrhea or syncope. The patient states that he does have inhalers at home which he used without any improvement of his symptoms. The patient also denies any known history of COPD despite a heavy smoking history. The patient also denies any history of asthma. In the emergency room, the patient was hemodynamically stable. Labs were relatively benign without any signs of sepsis. CT angio of the chest was done because the patient was needing 3 L of oxygen per nasal cannula. There is no PE that seen on CT angio of the chest but suggested possible pneumonia. The patient was started on Solu-Medrol, DuoNebs, azithromycin and ceftriaxone. S: He still feels relatively tight. He does smoke about a half pack of cigarettes a day in his open a Nicoderm patch. He has had rhinorrhea and a dry cough. He diarrhea or myalgias. A 4Plex respiratory PCR was negative. [facility] Medical History Skin problem Foot pain Ankle pain Kidney stones Family History Father Cancer Grandfather Cancer Social History household members: children Smoking Status: Current every day smoker Meds Home Medications and Allergies Home Medications ?Medication ?Instructions ?Recorded ?Confirmed ?Type No Known Home Medications 07/12/24 07/12/24 History Allergies Allergy/AdvReac Type Severity Reaction Status Date / Time penicillin V (PENICILLIN V) Allergy Unknown unknown Verified 07/12/24 07:59 Review of Systems Review of Systems Narrative: All else reviewed and otherwise unremarkable except as noted in the history and physical. Exam Vital Signs (past 8 hours): - 12/17/24 04:20 12/17/24 04:22 12/17/24 04:30 Temperature 99.2 F Pulse Rate 101 H 93 H 89 Respiratory Rate 18 18 Blood Pressure Pulse Oximetry 91 89 L 92 Oxygen Delivery Method Room Air Nasal Cannula Oxygen Flow Rate 3 Fraction of Inspired Oxygen 92 12/17/24 04:30 12/17/24 04:56 12/17/24 04:56 Temperature Pulse Rate 95 H 91 H Respiratory Rate Blood Pressure 169/89 H Pulse Oximetry 90 L 92 Oxygen Delivery Method Nasal Cannula Oxygen Flow Rate 2 Fraction of Inspired Oxygen 12/17/24 05:00 12/17/24 05:00 12/17/24 05:30 Temperature Pulse Rate 91 H 97 H Respiratory Rate 29 H Blood Pressure 169/95 H Pulse Oximetry 93 89 L Oxygen Delivery Method Oxygen Flow Rate Fraction of Inspired Oxygen 12/17/24 06:00 12/17/24 06:15 12/17/24 06:45 Temperature 98.5 F Pulse Rate 89 96 H Respiratory Rate 23 19 Blood Pressure 150/99 H Pulse Oximetry 91 94 93 Oxygen Delivery Method Nasal Cannula Oximask Oxygen Flow Rate 5 4 Fraction of Inspired Oxygen Fraction of Inspired Oxygen 92 SaO2/FiO2 Ratio 98 Oxygen Delivery Method Oximask Oxygen Flow Rate 4 Narrative Exam Narrative: NAD, alert and oriented, fluent speech, calm. Normocephalic skull, EOMI, anicteric sclera, symmetric pupils. Oropharynx unremarkable, no droop. Neck supple, midline trachea, no adenopathy. Lungs with inspiratory and expiratory wheezing as well as diminished breath sounds and prolonged expiration. His work of breathing is fairly normal. Heart regular, no murmur gallop or rub. Abdomen is soft, non distended and non tender. Extremities are free of edema. Skin is free of rash or lesions. Joints are not swollen or deformed. Judgment appears to be normal. Objective ECG Impression: Sinus tachycardia Left posterior fascicular block Nonspecific T wave abnormality Imaging Chest x-ray: Radiologist's impression: No airspace consolidation or pleural effusion on this single view study with low lung volumes. Normal heart size. Unremarkable osseous structures. CT scan - chest: Radiologist's impression: Bibasilar nodularity and opacities, most confluent in the dependent lower lungs, likely infectious. No acute pulmonary embolism. The distal-most arteries are obscured by motion artifact. Mildly enlarged mediastinal and hilar lymph nodes are indeterminate and possibly reactive. Consider surveillance imaging to ensure resolution of the above described lymph nodes and pulmonary findings. No significant discrepancy from the preliminary report. Labs 12/17/24 04:16 12/17/24 04:16 Labs: Laboratory Results - last 24 hr 12/17/24 12/17/24 04:16 04:36 WBC 10.5 RBC 4.73 Hgb 14.2 Hct 41.2 MCV 87.1 MCH 30.0 MCHC 34.5 RDW 14.1 Plt Count 218 Neut % (Auto) 82.7 H Lymph % (Auto) 10.4 L [place] % (Auto) 4.1 Eos % (Auto) 2.2 Baso % (Auto) 0.6 Neut # (Auto) 8700 H Lymph # (Auto) 1100 [place] # (Auto) 400 Eos # (Auto) 200 Baso # (Auto) 100 VBG pH 7.38 VBG pCO2 49.2 VBG pO2 32 L VBG HCO3 29 H VBG Total CO2 28 VBG O2 Saturation 59 L VBG Base Excess 3.0 FiO2 % 32.0 % Sodium 137 Potassium 3.7 Chloride 102 Carbon Dioxide 27 BUN 11 Creatinine 0.74 Estimated GFR > 60 BUN/Creatinine Ratio 14.9 Glucose 143 H Lactate 2.0 Calcium 9.2 Total Bilirubin 0.7 AST 22 ALT 19 Alkaline Phosphatase 61 Total Creatine Kinase 62 Troponin I < 0.012 Total Protein 7.7 Albumin 4.5 Globulin 3.2 Albumin/Globulin Ratio 1.4 Lipase 39 Procalcitonin 0.050 SARS-CoV-2 (PCR) Negative Influenza A (RT-PCR) Flu a negative Influenza B (RT-PCR) Flu b negative RSV (PCR) Negative Assessment & Plan Assessment & Plan narrative: 1. COPD exacerbation. Present on admission and active. 2. Community-acquired pneumonia. Continue to treat with IV azithromycin and ceftriaxone. Present on admission and active. 3. Acute respiratory failure with hypoxemia. Likely related to COPD exacerbation. Patient currently on 3 L of oxygen per nasal cannula. Present on admission and active. 4.Extensive tobacco abuse and dependence. Patient states that he used to smoke 3 packs/day but now cut down to about half a pack per day. Present on admission and active. PLAN: -continue IV antibiotics for pneumonia. CT reveals bibasilar infiltrates. -continue bronchodilators, and steroids for COPD exacerbation. Wean oxygen as able. -Nicoderm patch. Anticipate at least 2 midnights in the hospital, supports inpatient status. DVT prophylaxis Lovenox. CODE STATUS full code. Time-Based Coding :: 35 min spent with patient and on the chart (including review of chart, obtaining history, exam, reviewing outside data, placing orders, documenting exam and treatment plan, and counseling patient) on 12/17. Quality MIPS - Admit The patient?s Advance Care plan is not present because I confirmed today that the patient does not wish or was not able to name a surrogate decision maker or provide an Advance Care Plan.: Yes MIPS - Meds 'Current medications' to include all prescriptions, [id number] products, herbals, cannabis/cannabidiol products, and vitamin/mineral/dietary (nutritional) supplements. I have utilized all available resources to obtain, update, or review the patient?s current medications. [If Yes, STOP here]: Yes
[2024-12-17] MEDS: SODIUM CHLORIDE 0.9% 1,000 ML 75 ML IV (07:49)
[2024-12-17] MEDS: ACETAMINOPHEN 325 MG TABLET 650 MG PO (07:51)
[2024-12-17] MEDS: AZITHROMYCIN 500 MG in DEXTROSE 5% IN WATER 250 ML 250 MG IV (08:40)
[2024-12-17] MEDS: ENOXAPARIN 40 MG/0.4 ML SYRINGE SUBCUT (10:30)
[2024-12-17] MEDS: NICOTINE 14 PATCH 14 MG TOP (13:44)
[2024-12-17] MEDS: methylPREDNISolone 125 MG/2 ML VIAL 60 MG IV ×2 (13:45→21:34)
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
[2024-12-18 05:52] LABS: Add Manual Diff / Slide Review NO; Basophils Absolute Auto 0 /uL (0-100); Basophils Percent Auto 0.2 % (0-2); Eosinophils Absolute Auto 0 /uL (0-450); Hemoglobin 13.1 g/dL (13.5-17.5); Lymphocytes Absolute Auto 1200 /uL (1100-4500); Lymphocytes Percent Auto 6.4 % (25-40); Mean Corpuscular HGB Conc 34.5 % (30-36); Mean Corpuscular Volume 86.9 fL (80-100); Monocytes Absolute Auto 700 /uL (0-900); Monocytes Percent Auto 4.1 % (3-14); Neutrophils Absolute Auto 16200 /uL (1500-7000); Neutrophils Percent Auto 89.3 % (50-75); Platelet Count 228 X10^3/uL (150-400); Red Blood Cell Count 4.38 X10^6/uL (4.5-5.9); Red Cell Distribution Width 14.2 % (11.6-14.8); White Blood Cell Count 18.1 X10^3/uL (4.5-11.0)
[2024-12-18 06:06] LABS: Alanine Aminotransferase 19 IU/L (<50); Albumin 4.1 g/dL (3.5-5.0); Albumin Globulin Ratio 1.2 (1.0-2.8); Alkaline Phosphatase 59 U/L (38-126); Aspartate Aminotransferase 20 IU/L (17-59); BUN Creatinine Ratio 31.6 (6-22); Bilirubin Total 0.3 mg/dL (0.2-1.3); Blood Urea Nitrogen 18 mg/dL (9-20); Calcium 9.1 mg/dL (8.4-10.2); Carbon Dioxide 26 mmol/L (22-32); Chloride 104 mmol/L (98-107); Estimated Glomerular Filt Rate > 60 mL/min (>60); Globulin 3.5 g/dL (1.7-4.1); Glucose 132 mg/dL (70-99); HEMOLYSIS < 15 (0-50); Potassium 4.5 mmol/L (3.4-5.1); Sodium 137 mmol/L (137-145); Total Protein 7.6 g/dL (6.3-8.2)
[2024-12-18] MEDS: methylPREDNISolone 125 MG/2 ML VIAL 60 MG IV ×2 (06:07→14:12)
[2024-12-18] MEDS: cefTRIAXone 1,000 MG in SODIUM CHLORIDE 0.9% 100 ML 200 MG IV ×2 (06:07→08:30)
--- NOTE | 2024-12-18 06:20 | PC.NURSE ---
Pt has been satting in the low 90's all night while on 2 L NC. Lungs are diminished with some scattered ronchi. Pt at the beginning of the shift conversing with this nurse and his friend at the bedside as the night progress pt appears to be more sleepy with a a saturation of 92-96% on 2 L. IV antibiotics infusing at the moment.
[2024-12-18 06:37] VITALS: TEMP 36.7
--- NOTE | 2024-12-18 07:40 | P.PN_ITS ---
Subjective Subjective Interval history: Summary: He was admitted with COPD exacerbation. He was as methamphetamines and is a current smoker. He was initially hypoxemic. S: He was on oxygen, but feels better today. He wonders if he can go home. Exam Vital Signs (past 8 hours): - 12/18/24 06:37 Temperature 98.1 F Fraction of Inspired Oxygen 92 SaO2/FiO2 Ratio 98 Oxygen Delivery Method Nasal Cannula Oxygen Flow Rate 2 Narrative Exam Narrative: NAD, speaking comfortably. Oxygen as off his face when I talked to him. Heart is regular. Lungs are diminished with less wheezing Abdomen is flat, non tender No extremity edema Objective Imaging Multiple studies: : Radiologist's impression: Chest x-ray: Radiologist's impression: No airspace consolidation or pleural effusion on this single view study with low lung volumes. Normal heart size. Unremarkable osseous structures. CT scan - chest: Radiologist's impression: Bibasilar nodularity and opacities, most confluent in the dependent lower lungs, likely infectious. No acute pulmonary embolism. The distal-most arteries are obscured by motion artifact. Mildly enlarged mediastinal and hilar lymph nodes are indeterminate and possibly reactive. Consider surveillance imaging to ensure resolution of the above described lymph nodes and pulmonary findings. No significant discrepancy from the preliminary report. Labs 12/18/24 05:40 12/18/24 05:40 Labs: Laboratory Results - last 24 hr 12/18/24 05:40 WBC 18.1 H D RBC 4.38 L Hgb 13.1 L Hct 38.0 L MCV 86.9 MCH 30.0 MCHC 34.5 RDW 14.2 Plt Count 228 Neut % (Auto) 89.3 H Lymph % (Auto) 6.4 L [place] % (Auto) 4.1 Eos % (Auto) 0.0 L Baso % (Auto) 0.2 Neut # (Auto) 64232 H Lymph # (Auto) 1200 [place] # (Auto) 700 Eos # (Auto) 0 Baso # (Auto) 0 Sodium 137 Potassium 4.5 Chloride 104 Carbon Dioxide 26 BUN 18 Creatinine 0.57 L Estimated GFR > 60 BUN/Creatinine Ratio 31.6 H Glucose 132 H Calcium 9.1 Total Bilirubin 0.3 AST 20 ALT 19 Alkaline Phosphatase 59 Total Protein 7.6 Albumin 4.1 Globulin 3.5 Albumin/Globulin Ratio 1.2 [facility] Medical History Skin problem Foot pain Ankle pain Kidney stones Family History Father Cancer Grandfather Cancer Social History household members: children Smoking Status: Current every day smoker Assessment & Plan Assessment & Plan narrative: 1. COPD exacerbation. Present on admission and improving. 2. Community-acquired pneumonia. Continue to treat with IV azithromycin and ceftriaxone. Present on admission and active. 3. Acute respiratory failure with hypoxemia. Likely related to COPD exacerbation. Patient currently on 3 L of oxygen per nasal cannula. Present on admission and active. 4.Extensive tobacco abuse and dependence. Patient states that he used to smoke 3 packs/day but now cut down to about half a pack per day. Present on admission and active. PLAN: -continue IV antibiotics for pneumonia. CT reveals bibasilar infiltrates. -continue bronchodilators, and steroids for COPD exacerbation. Wean oxygen as able. -Nicoderm patch. -we will ambulate him and try to wean him off oxygen completely. If he feels fairly good this afternoon he may be able to discharge home. Anticipate at least 2 midnights in the hospital, supports inpatient status. DVT prophylaxis Lovenox. CODE STATUS full code. Time-Based Coding :: [TOTAL MINUTES] spent with patient and on the chart (including review of chart, obtaining history, exam, reviewing outside data, placing orders, documenting exam and treatment plan, and counseling patient) on [DATE]. Quality VTE Deep Vein Thrombosis/Pulmonary Embolism Present on Admission: No
[2024-12-18 08:00] VITALS: BP 140/92; PULSE 89; RESP 16; TEMP 36.7; O2SAT 92
[2024-12-18] MEDS: AZITHROMYCIN 500 MG in DEXTROSE 5% IN WATER 250 ML 250 MG IV (08:30)
[2024-12-18] MEDS: NICOTINE 14 PATCH 14 MG TOP (08:31)
[2024-12-18] MEDS: ENOXAPARIN 40 MG/0.4 ML SYRINGE SUBCUT (08:31)
[2024-12-18 09:28] VITALS: PULSE 115; RESP 18; O2SAT 97
[2024-12-18] MEDS: ALBUTEROL/IPRATROPIUM 3 ML AMPUL INH ×2 (09:28→13:29)
--- NOTE | 2024-12-18 10:31 | CM.DPC ---
DCP Cont: Per MD, pt remains lethargic and on 2LO2 and still getting IV-Abx but will attempt to wean to room air today and get pt ambulating with staff today to determine if stable for discharge home this afternoon. ADINA and met bedside with pt this morning and still drowsy but able to wake up and answer questions appropriately before dozing back to sleep. SW inquired about previously set up PCP appointment with Dr. Adams that was cancelled and pt could not recall if he cancelled it or forgot about it and confirms he still does not have PCP established. Pt states he was at [facility] in August for pneumonia and was referred to a specialist that he thinks maybe was for his lungs but he didn't feel it was helpful so he did not return. Pt agreeable with d/c to home when stable and does not anticipate any further needs at this time. Plan: SW to follow closely for plan of discharge home today vs tomorrow pending pt ability to tolerate room air. JULIAN Orta
[2024-12-18 13:30] VITALS: PULSE 110; RESP 16; O2SAT 97
--- NOTE | 2024-12-18 14:30 | P.DS_ITS ---
History of Present Illness History of Present Illness Chief complaint: SOB, Cough Narrative: From night doctor: 49-year-old male 49-year-old male with past medical history of 50 pack plus year smoker presents with complaint of shortness of breath. Per the patient's report, over the last few days, the patient has been having bodyaches, sore throat, nasal congestion and shortness of breath on exertion. The patient however denies any fever, chills, chest pain, nausea, vomiting, diarrhea or syncope. The patient states that he does have inhalers at home which he used without any improvement of his symptoms. The patient also denies any known history of COPD despite a heavy smoking history. The patient also denies any history of asthma. In the emergency room, the patient was hemodynamically stable. Labs were relatively benign without any signs of sepsis. CT angio of the chest was done because the patient was needing 3 L of oxygen per nasal cannula. There is no PE that seen on CT angio of the chest but suggested possible pneumonia. The patient was started on Solu-Medrol, DuoNebs, azithromycin and ceftriaxone. S: He still feels relatively tight. He does smoke about a half pack of cigarettes a day in his open a Nicoderm patch. He has had rhinorrhea and a dry cough. He diarrhea or myalgias. A 4Plex respiratory PCR was negative. Discharge Providers Provider Date of admission: 12/17/24 06:11 Discharge Date: 12/18/24 Consults: None. Discharge provider: Michael El MD Summary Hospital Course Discharge Diagnosis: 1. COPD exacerbation. Present on admission and improved. 2. Community-acquired pneumonia. Present on admission and improved. 3. Acute respiratory failure with hypoxemia. Present on admission and resolved. 4. Extensive tobacco abuse and dependence. Present on admission and active. Hospital Course: The patient was admitted with COPD exacerbation treatments steroids and bronchodilators. He was quite wheezy upon his presentation and hypoxic. He did improve overnight and weaned off from oxygen and was able to ambulate on the day of discharge. He was felt to be stable for discharge on oral steroids and antibiotics. He also requested a nicotine patch for ongoing nicotine cessation. He did test positive for methamphetamines. Status at Discharge Cognitive/behavioral status at discharge: oriented Functional status at discharge: independent ambulation Overall status at discharge: patient is back to baseline Time Spent with Patient Time spent: Greater than 30 minutes Exam Vital Signs (past 8 hours): - 12/18/24 06:37 12/18/24 08:00 12/18/24 09:28 Temperature 98.1 F 98.0 F Pulse Rate 89 115 H Respiratory Rate 16 18 Blood Pressure 140/92 H Pulse Oximetry 92 97 Oxygen Delivery Method Nasal Cannula Oxygen Flow Rate 2 2 12/18/24 13:30 Temperature Pulse Rate 110 H Respiratory Rate 16 Blood Pressure Pulse Oximetry 97 Oxygen Delivery Method Room Air Oxygen Flow Rate Fraction of Inspired Oxygen 92 SaO2/FiO2 Ratio 98 Oxygen Delivery Method Room Air Oxygen Flow Rate 2 Narrative Exam Narrative: NAD, alert and oriented. Fluent speech. Lungs are clear, normal rate and effort. Much more clear, minimal wheezing. Heart is regular, no murmur gallop or rub. Abdomen is soft, non distended. Extremities are free of edema. Objective ECG Impression: Sinus tachycardia Left posterior fascicular block Nonspecific T wave abnormality Imaging Chest x-ray: Radiologist's impression: No airspace consolidation or pleural effusion on this single view study with low lung volumes. Normal heart size. Unremarkable osseous structures. CT scan - chest: Radiologist's impression: Bibasilar nodularity and opacities, most confluent in the dependent lower lungs, likely infectious. No acute pulmonary embolism. The distal-most arteries are obscured by motion artifact. Mildly enlarged mediastinal and hilar lymph nodes are indeterminate and possibly reactive. Consider surveillance imaging to ensure resolution of the above described lymph nodes and pulmonary findings. Labs 12/18/24 05:40 12/18/24 05:40 Labs: Laboratory Results - last 24 hr 12/18/24 05:40 WBC 18.1 H D RBC 4.38 L Hgb 13.1 L Hct 38.0 L MCV 86.9 MCH 30.0 MCHC 34.5 RDW 14.2 Plt Count 228 Neut % (Auto) 89.3 H Lymph % (Auto) 6.4 L [place] % (Auto) 4.1 Eos % (Auto) 0.0 L Baso % (Auto) 0.2 Neut # (Auto) 10361 H Lymph # (Auto) 1200 [place] # (Auto) 700 Eos # (Auto) 0 Baso # (Auto) 0 Sodium 137 Potassium 4.5 Chloride 104 Carbon Dioxide 26 BUN 18 Creatinine 0.57 L Estimated GFR > 60 BUN/Creatinine Ratio 31.6 H Glucose 132 H Calcium 9.1 Total Bilirubin 0.3 AST 20 ALT 19 Alkaline Phosphatase 59 Total Protein 7.6 Albumin 4.1 Globulin 3.5 Albumin/Globulin Ratio 1.2 PFSH Medical History Skin problem Foot pain Ankle pain Kidney stones Family History Father Cancer Grandfather Cancer Social History household members: children Smoking Status: Current every day smoker Discharge Assessment & Plan Assessment and Plan Assessment: 1. COPD exacerbation. Present on admission and improved. 2. Community-acquired pneumonia. Present on admission and improved. 3. Acute respiratory failure with hypoxemia. Present on admission and resolved. 4. Extensive tobacco abuse and dependence. Present on admission and active. Plan of Treatment: Discharge home with prednisone daily for 5 additional days, antibiotics for 4 additional days, and albuterol MDI as well as Nicoderm patches. We advised him to see PCP within the next week. Discharge Plan Discharge Plan Patient Disposition: Home Provider Discharge Comment: Improved and stable for discharge home. Discharge orders & Medications Prescriptions: New nicotine 14 mg/24 hr Patch 24 Hour 14 mg topical DAILY Qty: 30 2RF doxycycline hyclate 100 mg capsule 100 mg PO DAILY Qty: 10 0RF prednisone 50 mg tablet 50 mg PO DAILY Qty: 5 0RF albuterol sulfate 90 mcg/actuation HFA aerosol inhaler 1 inh inhalation QID PRN (Reason: shortness of breath or wheezing) Qty: 8.5 2RF No Action No Known Home Medications Diet/Activity/Treatments Diet: Diet as Tolerated Visit Report/Discharge Packet Instructions: DI for Chronic Obstructive Pulmonary Disease, DI for Pneumonia -- Adult Stand Alone Forms: Patient Portal/API Quality VTE Deep Vein Thrombosis/Pulmonary Embolism Present on Admission: No
== END 2024-12-18 15:23 | disposition home or self-care (01) ==
LOC: ED 04:09 → AC 06:12
PROVIDERS: Admitting Provider Internal Medicine; Emergency Provider Family Medicine; Referring Provider Family Medicine; Visit Provider Internal Medicine
DX: J44.1 Chronic obstructive pulmonary disease with (acute) exacerbation (principal); J96.01 Acute respiratory failure with hypoxia; J18.9 Pneumonia, unspecified organism; J20.9 Acute bronchitis, unspecified; J44.0 Chronic obstructive pulmonary disease with (acute) lower respiratory infection; R00.0 Tachycardia, unspecified; F17.210 Nicotine dependence, cigarettes, uncomplicated; F15.90 Other stimulant use, unspecified, uncomplicated
CPT/HCPCS: 0241U; 36415; 71045; 71275; 80053; 82550; 82805; 83605; 83690; 84145; 84484; 85025; 87040; 93005; 93010; 94640; 94760; 94762; 96361; 96365; 96366; 96367; 96368; 96372; 96374; 96375; 99285; 99406; G0378; J0696; J1650; J2919; Q9967